=== PATIENT | male | born 1930 | race African-American/Black ===

== ENCOUNTER 2017-07-23 15:20 | Emergency (ER) | payer MEDICARE, MEDICAID ==
[2017-07-23] MEDS ORDERED: Dextrose 50% Abboject 50 ML SYRINGE ONE (15:46)
[2017-07-23 16:53] LABS: ALT (SGPT) 10 U/L (8-55); AST (SGOT) 21 U/L (5-34); Albumin 3.8 g/dL (3.4-4.8); Alkaline Phosphatase 71 U/L (40-150); Anion Gap 12 mmol/L (10-20); BUN (Urea Nitrogen) 18 mg/dL (8.4-25.7); Bilirubin, Total 0.3 mg/dL (0.2-1.2); Calc. Creatinine Clearance 0 mL/min (70-130); Carbon Dioxide 28 mmol/L (23-31); Chloride 102 mmol/L (98-107); Estimated GFR-MDRD 62; Globulin 3.6 g/dL (2.4-3.5); Glucose 142 mg/dL (83-110); Potassium 3.8 mmol/L (3.5-5.1); Protein, Total 7.4 g/dL (5.8-8.1); Sodium 138 mmol/L (136-145)
[2017-07-23 17:08] LABS: #Eosinphils 0.1 thou/uL (0.0-0.7); #Lymphocytes 0.9 thou/uL (1.20-3.40); #Monocytes 0.5 thou/uL (0.11-0.59); #Neutrophils 3.7 thou/uL (1.40-6.50); %Basophils 0.2 % (0.0-1.0); %Eosinophils 1.2 % (0.0-10.0); %Neutrophils 71.7 % (42.0-75.0); Hemoglobin 13.5 g/dL (14.0-18.0); Mean Corpuscular HGB CONC 32.4 g/dL (32.0-36.0); Mean Corpuscular Hemoglobin 29.6 pg (27.0-31.0); Mean Corpuscular Volume 91.5 fl (80.0-94.0); Mean Platelet Volume 7.5 fL (7.4-10.4); Platelet Count 249 thou/uL (130-400); RBC Distribution Width 12.7 % (11.5-14.5); Red Blood Cell (RBC) Count 4.54 mill/uL (4.70-6.10); White Blood Cell (WBC) Count 5.1 thou/uL (4.8-10.8)
[2017-07-23 17:33] LABS: CKMB 1.1 ng/mL (0-6.6); Troponin I Less than 0.010 ng/mL (< 0.028)
[2017-07-23 19:20] LABS: Bilirubin Negative (Negative); Blood, Urine Negative (Negative); Clarity CLEAR (Clear); Glucose, Urine (Dipstick) Negative (Negative); Leukocyte Negative (Negative); Nitrite Negative (Negative); Protein, Urine (Dipstick) Negative (Neg-Trace); Specific Gravity, Urine 1.009 (1.002-1.036); Urobilinogen 0.2 mg/dL (0.2-1.0)
--- NOTE | 2017-07-27 12:53 | EKG ---
Test Reason : Blood Pressure : / mmHG Vent. Rate : 077 BPM Atrial Rate : 077 BPM P-R Int : 204 ms QRS Dur : 102 ms QT Int : 398 ms P-R-T Axes : 053 -26 039 degrees QTc Int : 450 ms Normal sinus rhythm Nonspecific ST abnormality No ectopy Abnormal ECG Confirmed by JADA REICH, SKYLAR ([id number]), supervising film or videotape editor ZACHARY VALENZUELA ([id number]) on 07/27/2017 12:53:07 PM Referred By: Confirmed By:SKYLAR ELIAS MD
== END 2017-07-23 19:43 | disposition home or self-care (01) ==
LOC: ERS 15:20
DX: E11.649 Type 2 diabetes mellitus with hypoglycemia without coma (principal); E66.9 Obesity, unspecified; R60.0 Localized edema; Z79.84 Long term (current) use of oral hypoglycemic drugs; Z79.899 Other long term (current) drug therapy
CPT/HCPCS: 36415; 36416; 80053; 81003; 82553; 83880; 84484; 85025; 87045; 87046; 87081; 87324; 87449; 87899; 93005; 96374

== ENCOUNTER 2018-01-07 12:35 | Emergency (ER) | payer MEDICARE, OTHER ==
[2018-01-07 13:57] LABS: #Basophils 0.1 thou/uL (0.0-0.2); #Eosinphils 0.2 thou/uL (0.0-0.7); #Monocytes 1.5 thou/uL (0.11-0.59); #Neutrophils 10.2 thou/uL (1.40-6.50); %Basophils 0.4 % (0.0-1.0); %Eosinophils 1.4 % (0.0-10.0); %Monocytes 11.6 % (0.0-10.0); %Neutrophils 78.7 % (42.0-75.0); Hemoglobin 12.2 g/dL (14.0-18.0); Mean Corpuscular HGB CONC 31.3 g/dL (32.0-36.0); Mean Corpuscular Hemoglobin 29.3 pg (27.0-31.0); Mean Corpuscular Volume 93.5 fL (78.0-98.0); Mean Platelet Volume 8.3 fL (7.4-10.4); Platelet Count 368 thou/uL (130-400); RBC Distribution Width 12.4 % (11.5-14.5); Red Blood Cell (RBC) Count 4.17 mill/uL (4.70-6.10); White Blood Cell (WBC) Count 12.9 thou/uL (4.8-10.8)
[2018-01-07 14:11] LABS: ALT (SGPT) 11 U/L (8-55); AST (SGOT) 20 U/L (5-34); Albumin 3.3 g/dL (3.4-4.8); Alkaline Phosphatase 61 U/L (40-150); Anion Gap 12 mmol/L (10-20); BUN (Urea Nitrogen) 16 mg/dL (8.4-25.7); Bilirubin, Total 0.3 mg/dL (0.2-1.2); Calc. Creatinine Clearance 0 mL/min (70-130); Calcium 9.4 mg/dL (7.8-10.44); Carbon Dioxide 31 mmol/L (23-31); Chloride 103 mmol/L (98-107); Estimated GFR-MDRD Greater than 90; Globulin 3.9 g/dL (2.4-3.5); Glucose 122 mg/dL (83-110); Lipase 30 U/L (8-78); Magnesium 2.2 mg/dL (1.6-2.6); Protein, Total 7.2 g/dL (5.8-8.1); Sodium 142 mmol/L (136-145)
[2018-01-07 14:15] LABS: CKMB 1.8 ng/mL (0-6.6); Troponin I Less than 0.010 ng/mL (< 0.028)
--- NOTE | 2018-01-07 14:53 | RAD ---
CHEST ONE VIEW: History: 87-year-old male with history of vomiting and weakness. FINDINGS: Monitor leads overlie the chest. Heart size is within normal limits. The lungs are clear. No pneumoni a, edema, or pleural effusion. IMPRESSION: No acute intrathoracic disease. Atherosclerosis of the aorta. POS: [facility]
== END 2018-01-07 16:24 | disposition home or self-care (01) ==
LOC: ERS 12:35
DX: K29.70 Gastritis, unspecified, without bleeding (principal); L89.899 Pressure ulcer of other site, unspecified stage; I10 Essential (primary) hypertension; Z86.73 Personal history of transient ischemic attack (TIA), and cerebral infarction without residual deficits; E11.9 Type 2 diabetes mellitus without complications; Z79.899 Other long term (current) drug therapy
CPT/HCPCS: 71045; 80053; 82553; 83690; 83735; 84484; 85025; 93005

== ENCOUNTER 2018-01-31 16:00 | Emergency (ER) | payer MEDICARE, OTHER ==
--- NOTE | 2018-01-31 16:54 | RAD ---
PORTABLE CHEST 1 VIEW: DATE: 01/31/2018. TIME: 4:46 p.m. HISTORY: Cough. FINDINGS: Comparison is made with the exam of 01/07/2018. The heart size is normal. The aorta is tortuous. The lungs are expanded without focal areas of cons olidation, pneumothoraces, or pleural effusions. There are degenerative changes in the spine. IMPRESSION: No radiographic evidence of acute cardiopulmonary process. POS: [facility]
[2018-01-31 16:56] LABS: Bilirubin Negative (Negative); Blood, Urine Negative (Negative); Clarity CLEAR (Clear); Glucose, Urine (Dipstick) Negative (Negative); Leukocyte Negative (Negative); Nitrite Negative (Negative); Protein, Urine (Dipstick) 30 mg/dL (Neg-Trace); Specific Gravity, Urine 1.018 (1.002-1.036); pH, Urine 7.5 (5.0-9.0)
[2018-01-31 16:58] LABS: Bacteria/HPF None Seen HPF (None Seen); Hyaline Casts/LPF 0-3 HYALINE CAST LPF (0-3 Hyaline); Pathc Cast-AUWi Flag 0.14 (0-2.49); RBC/HPF 0-3 HPF (0-3); Squamous Epithelial 0-3 HPF (0-3); WBC/HPF 0-3 HPF (0-3)
[2018-01-31 17:00] LABS: #Eosinphils 0.2 thou/uL (0.0-0.7); #Lymphocytes 1.3 thou/uL (1.20-3.40); #Monocytes 0.8 thou/uL (0.11-0.59); #Neutrophils 5.6 thou/uL (1.40-6.50); %Basophils 0.2 % (0.0-1.0); %Lymphocytes 16.6 % (21.0-51.0); %Neutrophils 71.1 % (42.0-75.0); Hemoglobin 12.6 g/dL (14.0-18.0); Mean Corpuscular HGB CONC 31.6 g/dL (32.0-36.0); Mean Corpuscular Hemoglobin 29.1 pg (27.0-31.0); Mean Corpuscular Volume 92.1 fL (78.0-98.0); Mean Platelet Volume 7.3 fL (7.4-10.4); Platelet Count 336 thou/uL (130-400); RBC Distribution Width 12.9 % (11.5-14.5); Red Blood Cell (RBC) Count 4.33 mill/uL (4.70-6.10); White Blood Cell (WBC) Count 7.8 thou/uL (4.8-10.8)
[2018-01-31 17:22] LABS: ALT (SGPT) 12 U/L (8-55); AST (SGOT) 24 U/L (5-34); Albumin 3.2 g/dL (3.4-4.8); Alkaline Phosphatase 71 U/L (40-150); Anion Gap 8 mmol/L (10-20); BUN (Urea Nitrogen) 12 mg/dL (8.4-25.7); Bilirubin, Total 0.3 mg/dL (0.2-1.2); Calc. Creatinine Clearance 0 mL/min (70-130); Carbon Dioxide 31 mmol/L (23-31); Chloride 103 mmol/L (98-107); Estimated GFR-MDRD Greater than 90; Globulin 3.8 g/dL (2.4-3.5); Glucose 141 mg/dL (83-110); Potassium 3.8 mmol/L (3.5-5.1); Sodium 138 mmol/L (136-145)
[2018-01-31 17:26] LABS: CKMB 0.7 ng/mL (0-6.6); Troponin I Less than 0.010 ng/mL (< 0.028)
[2018-01-31 18:36] LABS: CK (CPK) 56 U/L (30-200); Lipase 41 U/L (8-78)
== END 2018-01-31 20:33 ==
LOC: ERS 16:00
DX: L89.159 Pressure ulcer of sacral region, unspecified stage (principal); I10 Essential (primary) hypertension; Z86.73 Personal history of transient ischemic attack (TIA), and cerebral infarction without residual deficits; E11.9 Type 2 diabetes mellitus without complications
CPT/HCPCS: 36415; 51701; 71045; 80053; 81003; 81015; 82553; 83690; 83880; 84443; 84484; 85025; 87086; 87804; 93005; 96360

== ENCOUNTER 2018-06-27 12:45 | Inpatient (IN) | payer MEDICARE, OTHER ==
--- NOTE | 2018-06-27 13:11 | RAD ---
Exam: Chest one view HISTORY:Weakness Comparison: 01/31/2018 FINDINGS: Extrinsic artifacts overlie the chest, limiting visualization. Lungs: Mild right basilar density Cardiac silhouette:Prominent mediastinal silhouette some of which is attributable to portable techniq ue and patient rotation Pulmonary vessels: Normal Pleural Spaces: Pleural-based density at the inferior right chest is present Pneumothorax: None Osseous abnormalities: None of acuity. IMPRESSION: Mild right basilar density could relate to small volume pleural fluid versus pleural thic kening. Prominent mediastinal silhouette as above. Fragment follow-up with well-positioned two-view chest radiograph to further evaluate.
--- NOTE | 2018-06-27 13:39 | CT ---
CT head noncontrast HISTORY: Weakness. Altered mental status. FINDINGS: There is no evidence of acute intracranial hemorrhage or infarct. Diffuse cortical atrophy. Mild chronic ischemic small vessel disease periventricular white matter. There is no mass effect or shift of midline structures. Visualized paranasal sinuses remain well aerated. IMPRESSION: Chronic-type findings. No acute intracranial abnormalities are demonstrated.
[2018-06-27 14:13] LABS: #Eosinphils 0.3 thou/uL (0.0-0.7); #Lymphocytes 2.1 thou/uL (1.20-3.40); #Monocytes 0.8 thou/uL (0.11-0.59); #Neutrophils 7.7 thou/uL (1.40-6.50); %Basophils 0.4 % (0.0-1.0); %Eosinophils 2.7 % (0.0-10.0); %Monocytes 7.6 % (0.0-10.0); %Neutrophils 70.2 % (42.0-75.0); Hemoglobin 9.3 g/dL (14.0-18.0); Mean Corpuscular HGB CONC 30.8 g/dL (32.0-36.0); Mean Corpuscular Hemoglobin 28.2 pg (27.0-31.0); Mean Corpuscular Volume 91.6 fL (78.0-98.0); Mean Platelet Volume 6.6 fL (7.4-10.4); Platelet Count 530 thou/uL (130-400); White Blood Cell (WBC) Count 10.9 thou/uL (4.8-10.8)
[2018-06-27 14:16] LABS: ALT (SGPT) Less than 7 U/L (8-55); AST (SGOT) 13 U/L (5-34); Albumin 2.6 g/dL (3.4-4.8); Alkaline Phosphatase 63 U/L (40-150); Anion Gap 12 mmol/L (10-20); BUN (Urea Nitrogen) 15 mg/dL (8.4-25.7); Bilirubin, Total 0.3 mg/dL (0.2-1.2); CK (CPK) 26 U/L (30-200); Calc. Creatinine Clearance 0 mL/min (70-130); Calcium 8.7 mg/dL (7.8-10.44); Carbon Dioxide 32 mmol/L (23-31); Chloride 100 mmol/L (98-107); Estimated GFR-MDRD Greater than 90; Globulin 4.2 g/dL (2.4-3.5); Glucose 118 mg/dL (83-110); Potassium 3.2 mmol/L (3.5-5.1); Protein, Total 6.8 g/dL (5.8-8.1); Sodium 141 mmol/L (136-145)
[2018-06-27] MEDS ORDERED: cefTRIAXone\\ROCEPHIN 2 GM VIAL ONE (14:20)
[2018-06-27 14:34] LABS: Bilirubin Negative (Negative); Blood, Urine Large (Negative); Clarity TURBID (Clear); Glucose, Urine (Dipstick) Negative (Negative); Leukocyte Large (Negative); Nitrite Negative (Negative); Protein, Urine (Dipstick) 100 mg/dL (Neg-Trace); Specific Gravity, Urine 1.011 (1.002-1.036); pH, Urine 6.5 (5.0-9.0)
[2018-06-27 14:45] LABS: Pathc Cast-AUWi Flag 435.38 (0-2.49); Yeast-AUWi Flag 1228.6 (0-25.0)
[2018-06-27 14:59] LABS: RBC/HPF GREATER THAN 50-TNTC HPF (0-3)
[2018-06-27 15:00] LABS: Bacteria/HPF 4+ HPF (None Seen); Hyaline Casts/LPF NONE SEEN LPF (0-3 Hyaline); Other Casts/LPF None Seen LPF (0-3 Hyaline); Yeast-All Forms None Seen HPF (None Seen)
[2018-06-27] MEDS ORDERED: Potassium Chloride 20 MEQ TAB ONE (15:13)
[2018-06-27] MEDS ORDERED: Ondansetron PF 4 MG/2 ML Vial IVP PRN (17:02)
[2018-06-27] MEDS ORDERED: cloNIDine 0.1 MG TAB PO PRN (17:02)
[2018-06-27] MEDS ORDERED: Senokot S 8.6-50 MG TAB PO PRN (17:02)
[2018-06-27] MEDS ORDERED: Calcium Carbonate 500 MG ChewTAB PO PRN (17:02)
[2018-06-27] MEDS ORDERED: hydrALAZINE 20 MG/ML VIAL SLOW IVP PRN (17:02)
[2018-06-27] MEDS ORDERED: Nitroglycerin 0.4 MG TAB (25 Tab Bottle) SL PRN (17:02)
[2018-06-27] MEDS ORDERED: Bisacodyl 10 MG SUPP PR PRN (17:02)
[2018-06-27] MEDS ORDERED: Benzonatate 100 MG CAP PO PRN (17:02)
[2018-06-27] MEDS ORDERED: Sodium Chloride 0.65% Nasal 44 ML BOT EA NARE PRN (17:02)
[2018-06-27] MEDS ORDERED: Bisacodyl 5 MG TAB PO PRN (17:02)
[2018-06-27] MEDS ORDERED: Dextrose 50% Abboject 50 ML SYRINGE SLOW IVP PRN (17:07)
[2018-06-27] MEDS ORDERED: Dextrose 5% in Water 1,000 ML IV PRN (17:07)
[2018-06-27] MEDS ORDERED: HumaLOG 300 UNITS/3 ML VIAL SC PRN ×2 (17:07)
[2018-06-27 19:43] VITALS: BMI 30.6
--- NOTE | 2018-06-27 20:02 | HP ---
PRIMARY CARE PHYSICIAN: León Rosas MD CHIEF COMPLAINT: Worsening generalized weakness. HISTORY OF PRESENTING ILLNESS: Mr. Orr is a pleasant 88-year-old male with past medical history of a stroke a few years ago, as well as high blood pressure, possible coronary artery disease and diabetes in the ER with above-mentioned complaint. History is mainly obtained by his family at bedside. The patient is a very poor historian. From most questions, he just defers it to everybody else in the room. Electronic medical records have been reviewed. According to his present at bedside, he has been lying in bed for the last couple of months. He has been progressively getting worse and worse. The patient himself states that he has been having chills. He denies any nausea, vomiting, diarrhea. He denies any dysuria, frequency, or urgency. He denies any chest pain, shortness of breath, orthopnea, or PND. reports that his appetite is very poor and he is barely eating. She tries to give him Ensure, but he does not want to drink that either. Family lives close by, but his elderly is the main care provider. The patient has also developed contracture off his left upper extremity for about 5 or 6 months and he reports that it is painful for him to extend the arm. He has not gotten out of the bed at all in the last 2 or 3 months and has been using adult diapers to urinate and defecate. Upon presentation to the emergency room, he was hemodynamically stable with a blood pressure 141/73, pulse of 89, respirations 18, temperature 98.2. His workup showed WBCs at 10.9, platelet count of 530, and hemoglobin of 9.3. He was somewhat hypokalemic with a potassium of 3.2. His cardiac enzymes were unremarkable. TSH and ammonia levels were normal. Blood sugar was 118. He was found to have blood and multiple bacteria in the urine and now was given Rocephin and vancomycin in the ER. He is hemodynamically stable and is now being admitted to Medicine Service for possible urinary tract infection. Urine culture and blood cultures have been obtained. CT scan of the brain is unremarkable. Chest x-ray unremarkable. CODE STATUS: Full code discussed with the patient and family in detail. REVIEW OF SYSTEMS: A full 14-point review of systems is done, it is negative except for those mentioned in the history and physical. All other systems are negative. PAST MEDICAL HISTORY: 1. Hypertension. 2. History of CVA. 3. Possible history of "heart attack.". 4. Diabetes mellitus, non insulin dependent. PAST SURGICAL HISTORY: The patient denies any recent or past surgeries. He is a very poor historian. PSYCHIATRIC HISTORY: Denies any anxiety or depression. SOCIAL HISTORY: He is and lives with his . No history of drug, tobacco, or alcohol abuse. FAMILY HISTORY: No significant family history of coronary artery disease or stroke. Some family members have had diabetes. ALLERGIES: NO KNOWN MEDICATION ALLERGIES. CURRENT MEDICATIONS: As listed in the ER records and will further need to be confirmed. 1. Atorvastatin 20 mg daily. 2. Glipizide 10 mg b.i.d. 3. Tamsulosin 0.4 mg daily. 4. Vitamin D2 daily. PHYSICAL EXAMINATION: VITAL SIGNS: Upon presentation, blood pressure 141/73, pulse of 89, respirations 18, temperature 98.2, and saturating 99% on room air. GENERAL: He is awake, alert, and oriented x3. He is being fed by his granddaughter at bedside and is eating voraciously. He does appear disheveled. HEENT: Mucous membrane is slightly dry. No oropharyngeal exudate or erythema. Head is normocephalic and atraumatic. Pupils are equal and reactive to light and accommodation. Extraocular movement intact. NECK: Supple without any lymphadenopathy, JVD, or bruit. CHEST: Clear to auscultation without any wheezing, rales, or rhonchi. HEART: Rate and rhythm are regular without any murmurs, rubs, or gallops. ABDOMEN: Soft, nontender, and nondistended. Positive bowel sounds. EXTREMITIES: Free of any cyanosis, clubbing, or edema. 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 NEUROLOGIC: Contracture of the left arm. I am able to move it involuntary, but the patient complains of pain. SKIN: Free of any rashes or bruises. Feels warm and dry to touch. PSYCHIATRIC: Normal affect. LABORATORY STUDIES: A 12-lead EKG by my review shows sinus rhythm at 90 beats per minute. He has some infrequent PVCs. Chest x-ray by my review shows atelectasis of the right base. LABORATORY DATA: As per HPI. WBC 10.9 with normal neutrophil count. Hemoglobin is 9.3, and the last one recorded in the system is 12.6 from January 2018. Platelet count 530. Serum chemistry; potassium 3.2, ammonia 29. Troponin 0.010. Creatine kinase 26, bicarb 32. Renal function within normal limit. Urinalysis showed lots of rbc's, wbc's and bacteria. CT scan of the brain by my review has no evidence to suggest acute hemorrhage or infarction. IMPRESSION AND PLAN: 1. Urinary tract infection with systemic inflammatory response syndrome. He will be started on broad spectrum IV antibiotics and IV fluids. He will be given Rocephin and vancomycin. We will follow the results of the urine and blood culture and taper the antibiotic based on the results. He is at very high risk of developing repeated urine infection because of his immobility and because of the fact that he is defecating in a diaper. We will also obtain a bladder scan to check for postvoid residual. The patient does not have any signs or symptoms to suggest hydronephrosis or nephrolithiasis. We will get a CT stone protocol to rule out nephrolithiasis as a cause as well. Currently, he is hemodynamically stable and will be admitted to medical floor. 2. Hypokalemia. We will start him on normal saline with potassium chloride. He has received 20 mEq of KCl in the emergency room as well. Check magnesium and phosphorus level. We suspect nutritional deficiencies because of poor oral intake. 3. Normocytic normochromic anemia. Suspect nutritional deficiencies. We will check iron indices as well as folic acid and B12 level. He denies any bleeding per rectum or melenic stools. 4. Dehydration as evident clinically. This is secondary to poor p.o. intake. We will start him on normal saline with potassium and monitor clinically. 5. Immobility and severe deconditioning. We will have OT/PT evaluate the patient. The patient will benefit from rehab stay. He is being taken care of by his elderly . He is a high risk for falls at home. 6. History of cerebrovascular accident. We will re-consult his home medications. I am not sure if the patient should be on aspirin at this point or not. I tried to review his past medical records, but he does not have any records in [facility] at this time. 7. Hypertension. Restart home medications once confirmed. 8. Diabetes mellitus. We will restart his home medication once confirmed and meanwhile put him on insulin sliding scale with frequent Accu-Cheks. 9. Add p.r.n. medication orders and supportive care. Deep venous thrombosis and gastrointestinal prophylaxis. DISPOSITION: Mr. Orr is currently being admitted to the hospital with urinary tract infection. He is hemodynamically stable. Estimated length of stay at this time is 2 to 3 midnights at the least. Further management will depend upon his clinical course. Code status, full code discussed with the patient and family. Job ID: [id number]
[2018-06-27] MEDS: Famotidine 20 MG TAB PO SCH (20:40)
[2018-06-27] MEDS: 1/2 NS w/KCL 20 mEq 1,000 ML IV SCH (20:40)
--- NOTE | 2018-06-27 22:23 | CT ---
CT of abdomen and pelvis: 06/27/2018 COMPARISON: None HISTORY: Urinary tract infection, decreased appetite and weight loss TECHNIQUE: Axial CT imaging obtained at 5 mm intervals through abdomen and pelvis with coronal reform atted imaging. No contrast media was administered FINDINGS: Lack of contrast media limits assessment of the viscera, bowel, vascular structures, and fo r lymphadenopathy. The visualized lung bases are unremarkable. No free intraperitoneal air is noted. Liver and spleen appear grossly unremarkable. Calcification near the gallbladder neck suggest choleli thiasis. Pancreas and adrenal glands appear grossly unremarkable. There is right-sided mild hydronephrosis and hydroureter extending to the level of the ureterovesicul ar junction. There is moderate hydronephrosis and hydroureter on the left also extending to the level of the ureterovesicular junction. The urinary bladder is markedly abnormal with circumferential irregular urinary bladder wall thickening. In addition there is significant perivesicular fat stranding. Limited assessment of the bowel without oral contrast media appears unremarkable. There is extensive atherosclerotic calcification of the abdominal aorta and its branches. Review of the osseous structures demonstrates diffuse osteopenia and multilevel lower lumbar spine fa cet hypertrophic change. No discrete worrisome lytic or blastic bone lesion. There is an age indeterminant, possibly acute, superior endplate fracture of the T12 vertebral body. IMPRESSION: Markedly abnormal appearance of the urinary bladder with irregular circumferential bladde r wall thickening. There is associated bilateral hydronephrosis and hydroureter as well as stranding of the adjacent perivesicular fat. This may be on the basis of an inflammatory/infectious p rocess involving the urinary bladder and or urinary bladder malignancy. Urology consultation is advised. Age-indeterminate superior endplate fracture of T12. Cholelithiasis.
[2018-06-28] MEDS: Acetaminophen 325 MG TAB PO PRN ×3 (02:01→19:33)
[2018-06-28] MEDS ORDERED: Vancomycin HCl 1 GM in Premix Bag 1 BAG IVPB SCH (03:00)
[2018-06-28] MEDS: 1/2 NS w/KCL 20 mEq 1,000 ML IV SCH ×2 (06:21→18:13)
[2018-06-28 06:42] LABS: #Eosinphils 0.2 thou/uL (0.0-0.7); #Lymphocytes 1.6 thou/uL (1.20-3.40); #Monocytes 0.9 thou/uL (0.11-0.59); %Basophils 0.5 % (0.0-1.0); %Eosinophils 2.1 % (0.0-10.0); %Monocytes 8.1 % (0.0-10.0); %Neutrophils 74.3 % (42.0-75.0); Hemoglobin 8.8 g/dL (14.0-18.0); Mean Corpuscular HGB CONC 31.4 g/dL (32.0-36.0); Mean Corpuscular Hemoglobin 28.6 pg (27.0-31.0); Mean Corpuscular Volume 91.1 fL (78.0-98.0); Mean Platelet Volume 6.6 fL (7.4-10.4); Platelet Count 477 thou/uL (130-400); RBC Distribution Width 12.9 % (11.5-14.5); Red Blood Cell (RBC) Count 3.09 mill/uL (4.70-6.10); White Blood Cell (WBC) Count 10.7 thou/uL (4.8-10.8)
[2018-06-28 06:57] LABS: Anion Gap 12 mmol/L (10-20); BUN (Urea Nitrogen) 14 mg/dL (8.4-25.7); Calc. Creatinine Clearance 79 mL/min (70-130); Calcium 8.4 mg/dL (7.8-10.44); Carbon Dioxide 30 mmol/L (23-31); Chloride 101 mmol/L (98-107); Estimated GFR-MDRD Greater than 90; Glucose 124 mg/dL (83-110); Iron 17 ug/dL (65-175); Iron Binding Capacity, Total 141 mcg/dL (261-462); Potassium 3.2 mmol/L (3.5-5.1); Sodium 140 mmol/L (136-145)
[2018-06-28 06:59] LABS: Iron 16 ug/dL (65-175); Iron Binding Capacity, Total 143 mcg/dL (261-462)
[2018-06-28 07:28] LABS: Folate (Folic Acid) 6.4 ng/mL (7.0-31.4)
[2018-06-28] MEDS: Famotidine 20 MG TAB PO SCH ×2 (07:58→19:33)
[2018-06-28] MEDS: Enoxaparin Sodium 40 MG/0.4 ML SYRINGE SC SCH (08:02)
--- NOTE | 2018-06-28 11:23 | PDOC.PN ---
- Subjective Encounter Start Date: 06/28/18 Encounter Start Time: 11:15 Subjective: f/u for suspected UTI, urinary retention and non-ambulatory status. -: Feels ok overall, some improvement in appetite. Needs assistance with all -: ADL's. interested in SNF options. - Objective Resuscitation Status - Order Detail: 06/27/18 18:14 Resuscitation Status Routine Resuscitation Status: FULL: Full Resuscitation Discussed with: discussed w pt MAR Reviewed: Yes Vital Signs & Weight: Vital Signs (12 hours) Temp Pulse Resp BP Pulse Ox 06/28/18 08:00 94 L 06/28/18 07:16 98.2 F 86 20 115/74 94 L 06/28/18 04:58 97.2 F L 79 16 102/62 93 L 06/28/18 01:00 97.8 F 88 16 136/66 95 Weight Weight 201 lb 9 oz I&O: 06/27/18 06/28/18 06/29/18 06:59 06:59 06:59 Intake Total 955 Balance 955 Result Diagrams: 06/28/18 05:53 06/28/18 05:53 Additional Labs: Accuchecks 06/28/18 06/27/18 04:55 21:01 POC Glucose 148 H 140 H Microbiology 06/27/18 14:57 Venous blood - Right Arm Blood Culture - Preliminary Specimen has been received and culture in progress. No Growth to date. 06/27/18 14:56 Venous blood - Left Hand Blood Culture - Preliminary Specimen has been received and culture in progress. No Growth to date. 06/27/18 14:03 Urine clean catch Urine Culture - Preliminary NO GROWTH AT 24 HOURS Laboratory Tests 06/27/18 06/27/18 06/27/18 13:48 13:48 13:48 WBC 10.9 H Hgb 9.3 L Plt Count 530 H Potassium 3.2 L Magnesium Iron TIBC % Saturation Vitamin B12 Folate TSH 3rd Generation 0.9999 06/27/18 06/28/18 06/28/18 13:48 05:53 05:53 WBC Hgb Plt Count Potassium Magnesium 1.8 Iron 17 L TIBC 141 L % Saturation 11 L Vitamin B12 Folate TSH 3rd Generation 06/28/18 05:53 WBC Hgb Plt Count Potassium Magnesium Iron TIBC % Saturation Vitamin B12 1334 H Folate 6.40 L TSH 3rd Generation Radiology Reviewed by me: Yes (CT abd/pel - urinary bladder wall thickening, bilat hydronephrosis/ureteter) Phys Exam - Physical Examination Constitutional: NAD smiling, alert, responsive HEENT: PERRLA, sclera anicteric, oral pharynx no lesions Neck: no nodes, no JVD, supple, full ROM Respiratory: no wheezing, no rales, no rhonchi, clear to auscultation bilateral S1, S2 Cardiovascular: RRR, no significant murmur, no rub, gallop Gastrointestinal: soft, non-tender, no distention, positive bowel sounds LUE contracture Musculoskeletal: no edema, pulses present moves RUE Neurological: normal sensation Skin: normal turgor, cap refill <2 seconds Dx/Plan (1) UTI (urinary tract infection) Status: Acute Comment: Suspected with initial negative Ucx, continue Rocephin , d/c Vancomycin (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 Comment: Klor-Con 40meq BID, serial K+ monitoring (5) Iron deficiency anemia Code(s): D50.9 - IRON DEFICIENCY ANEMIA, UNSPECIFIED Status: Chronic Comment : Start FeSO4 325mg BID (6) DM II (diabetes mellitus, type II), controlled Code(s): E11.9 - TYPE 2 DIABETES MELLITUS WITHOUT COMPLICATIONS Status: Chronic Comment: ISS, Accuchecks, resume Glipizide 10mg BID - Plan plan discussed w/ family, continue antibiotics, PT/OT, social services counselor, DVT proph w/SCDs Stable currently -: Continue Rocephin -: D/C Vancomycin -: PT/OT for functional assessment -: CM for SNF options * KCL replacement * AM lab: BMP, CBC
[2018-06-28] MEDS: cefTRIAXone\\ROCEPHIN 1 GM in Sodium Chloride 0.9% 100 ML IVPB SCH (14:11)
[2018-06-28] MEDS: Ferrous Sulfate 325 MG TAB PO SCH (14:11)
--- NOTE | 2018-06-29 03:30 | CON ---
DATE OF CONSULTATION: 06/27/2018 REASON FOR CONSULTATION: 1. Apparent urinary retention. 2. Gross hematuria. 3. Possible urinary tract infection. 4. Phimosis. 5. Prostate cancer. HISTORY OF PRESENT ILLNESS: Mr. Jose Enrique Orr is a very pleasant 88-year-old male formally a patient of my former partner, Dr. Kevon Thornton. Mr. Orr is admitted via the emergency department today for apparent incomplete bladder emptying, possible urinary tract infection and gross hematuria. Patient has a distant prostate cancer. Patient did undergo care previously by Dr. Kevon Thornton and by Dr. David Lowe. The patient is not having any major complaints regarding his bladder, but did undergo CT scanning today which demonstrates the presence of urinary bladder thickening, hydroureter, most prominent on the right side and evidence of urinary retention. Mr. Orr also suffers from diabetes mellitus and hypertension. ALLERGIES: NO KNOWN DRUG ALLERGIES. MEDICATION LIST: Includes; 1. Atorvastatin 20 mg daily. 2. Glipizide 10 mg twice daily. 3. Tamsulosin 0.4 mg daily. 4. Vitamin D2, take daily. PAST SURGICAL HISTORY: Patient does not report any previous surgery. He had radiation treatment for his prostate cancer. PHYSICAL EXAMINATION: VITAL SIGNS: Patient is afebrile with current temperature of 98.4, pulse 93, respirations 16, O2 saturations 93% on room air, and blood pressure is 149/67. GENERAL: This is a pleasant, awake, alert, male who has suffered unfortunately from a stroke, which affects mobility on his left side, his left hand. Shoulder movement is present, but he is unable to grasp or squeeze my hand. On the right side, there is some ability to grasp. Bilateral lower extremities appear to be extremely weak. The patient unable to complete a neurologic examination due to generalized weakness. HEAD, EYES, EARS, NOSE, AND THROAT: Extraocular movements are intact. Sclerae anicteric. Oropharynx is clear. NECK: Supple. LUNGS: Clear to auscultation bilaterally. CARDIAC: There appears to be an irregularly irregular rhythm on my exam today. ABDOMEN: Soft, obese, and nontender. Percussion reveals increased resonance in all four quadrants. There is a degree of distention present. A bladder scan was performed in an apparent postvoid state with this patient and he had over 280 mL of retained urine. GENITOURINARY: The patient has severe phimosis with inability to retract the foreskin. There is gross smegma present. Testes found present bilaterally in the scrotum are atrophic and small. Close examination of the patient's skin reveals no evidence of tattoos on the skin which would be normally found in a patient who underwent radiation therapy. BACK: There is a decubitus ulcer dressed on the sacral area. The spine appears normal. There is no costovertebral angle tenderness. RECTAL: Digital rectal examination is performed. There is a relative absence of rectal tone, perhaps consistent with the patient's previous radiation therapy. Digital rectal examination is performed. I find no evidence of residual prostate tissue, not able to find even 5 g of tissue to palpate. These findings would be consistent with the patient's past history of radiation therapy. There is no gross blood per rectum and no masses are noted. EXTREMITIES: As noted, there are pigmentation changes to the skin of the bilateral lower extremities and the patient has more or less unable to participate in neurologic examination due to weakness. LABORATORY STUDIES: Patient's admission white count yesterday was 10,900, now improved at 10,700 today. Hemoglobin today is 8.8 with hematocrit of 28.1. There is no significant left shift, although the ANC is elevated at 8000. Serum chemistries showed the patient's potassium at 3.2, blood urea nitrogen 14, creatinine 0.87 with an estimated GFR of greater than 90. Glucose was 124. Urinalysis obtained on 06/27/2018 showed the urine with a red color to it. Urine gravity of 1.011, urine protein 100, trace ketones, and large amount of blood was observed. On microscopic analysis, there was greater than 50 white cells per high-power field and greater than 50 red cells per high-power field. Urine bacteria were seen at a 4+ level. This apparently was a clean-catch through the patient's phimotic foreskin, so most of the results should be discounted due to that. A urine culture was obtained and there was no growth at 24 hours. Based on a "clean-catch" collections with a phimotic foreskin, I would also discount the culture results from this. ASSESSMENT: 1. Prostate cancer, status post external beam radiation therapy. There is no evidence of recurrence from a clinical standpoint in the patient's pelvis. Review of the CT scan does show bladder wall thickening which is more consistent with outlet obstruction. Patient currently is a urine retainer and clinical findings would agree with the CT scan results. 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 2. Phimosis. This patient if he goes to sleep for any investigative evaluations, should have a dorsal slit procedure performed. Alternatively, a circumcision. 3. Gross hematuria. 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 Cystoscopic evaluation could be performed to further evaluate that. 4. Prostate cancer. Most recent laboratories for the patient here at the [facility] did not show any recent PSA testing having been performed. Clinical findings suggest there is no residual prostate tissue. However, prostate infiltrative processes into the bladder could occur and account for the findings. Based on that, biopsied at the time of cystoscopy is probably indicated. PLAN: This patient probably could undergo cystoscopic evaluation and dorsal slit procedure during this hospitalization. Over 70 minutes of consultation time was spent in evaluation, assessment of this patient today. Job ID: [id number]
[2018-06-29] MEDS: 1/2 NS w/KCL 20 mEq 1,000 ML IV SCH ×3 (05:02→22:51)
[2018-06-29 06:48] LABS: Anion Gap 10 mmol/L (10-20); BUN (Urea Nitrogen) 11 mg/dL (8.4-25.7); Calc. Creatinine Clearance 80 mL/min (70-130); Carbon Dioxide 30 mmol/L (23-31); Chloride 104 mmol/L (98-107); Estimated GFR-MDRD Greater than 90; Glucose 97 mg/dL (83-110); Potassium 3.8 mmol/L (3.5-5.1); Sodium 140 mmol/L (136-145)
[2018-06-29 06:51] LABS: Hemoglobin 8.3 g/dL (14.0-18.0); Mean Corpuscular HGB CONC 31.3 g/dL (32.0-36.0); Mean Corpuscular Hemoglobin 28.6 pg (27.0-31.0); Mean Corpuscular Volume 91.4 fL (78.0-98.0); Platelet Count 440 thou/uL (130-400); RBC Distribution Width 13.1 % (11.5-14.5); White Blood Cell (WBC) Count 8.4 thou/uL (4.8-10.8)
[2018-06-29] MEDS: Famotidine 20 MG TAB PO SCH ×2 (08:09→20:38)
[2018-06-29] MEDS: Ferrous Sulfate 325 MG TAB PO SCH ×2 (08:09→16:13)
[2018-06-29] MEDS: Folic Acid 1 MG TAB PO SCH (08:10)
[2018-06-29] MEDS: Multivit, Therapeutic 1 TAB PO SCH (08:10)
[2018-06-29] MEDS: Acetaminophen 325 MG TAB PO PRN ×3 (08:12→20:38)
[2018-06-29] MEDS: Enoxaparin Sodium 40 MG/0.4 ML SYRINGE SC SCH (08:18)
[2018-06-29 08:42] LABS: Band 1 % (5-11); Eosinophils 4 % (0-10); Lymphocytes 18 % (21-51); MDiff Complete? YES; Monocytes 7 % (0-10); Neutrophil 70 % (42-75); Platelet Morphology Comment Appears Increased; Polychromasia SLIGHT = 2-3 cells (100X) (0-2/hpf)
--- NOTE | 2018-06-29 14:58 | PDOC.PN ---
- Subjective Encounter Start Date: 06/29/18 Encounter Start Time: 14:45 Subjective: f/u cystitis, UTI with gross hematuria and urinary retention. Continues -: on Rocephin and IVF's. No new issues. - Objective Resuscitation Status - Order Detail: 06/27/18 18:14 Resuscitation Status Routine Resuscitation Status: FULL: Full Resuscitation Discussed with: discussed w pt MAR Reviewed: Yes Vital Signs & Weight: Vital Signs (12 hours) Temp Pulse Pulse Resp BP BP Pulse Ox 06/29/18 11:47 98.5 F 91 18 126/78 96 06/29/18 11:04 88 126/78 06/29/18 11:00 98.3 F 91 18 126/78 96 06/29/18 07:57 98.0 F 88 18 154/87 H 94 L 06/29/18 07:05 98 F 88 18 154/87 H 94 L 06/29/18 05:03 98.8 F 93 18 152/68 H 95 Pulse Ox 06/29/18 11:47 06/29/18 11:04 96 06/29/18 11:00 06/29/18 07:57 06/29/18 07:05 06/29/18 05:03 Weight Admit Weight 201 lb 9 oz Weight 201 lb 9 oz I&O: 06/28/18 06/29/18 06/30/18 06:59 06:59 06:59 Intake Total 955 3800 Balance 955 3800 Result Diagrams: 06/29/18 05:27 06/29/18 05:27 Additional Labs: Accuchecks 06/29/18 06/29/18 06/28/18 11:02 05:01 19:20 POC Glucose 156 H 116 H 139 H 06/28/18 16:40 POC Glucose 136 H Microbiology 06/27/18 14:03 Urine clean catch Urine Culture - Final 06/27/18 14:57 Venous blood - Right Arm Blood Culture - Preliminary Specimen has been received and culture in progress. No Growth to date. 06/27/18 14:57 Venous blood - Right Arm Blood Culture - Preliminary NO GROWTH AT 48 HOURS 06/27/18 14:56 Venous blood - Left Hand Blood Culture - Preliminary Specimen has been received and culture in progress. No Growth to date. 06/27/18 14:56 Venous blood - Left Hand Blood Culture - Preliminary NO GROWTH AT 48 HOURS 06/27/18 14:03 Urine clean catch Urine Culture - Preliminary NO GROWTH AT 24 HOURS Laboratory Tests 06/27/18 06/27/18 06/27/18 13:48 13:48 13:48 WBC 10.9 H Hgb 9.3 L Plt Count 530 H Potassium 3.2 L Magnesium Iron TIBC % Saturation Vitamin B12 Folate TSH 3rd Generation 0.9999 06/27/18 06/28/18 06/28/18 13:48 05:53 05:53 WBC Hgb Plt Count Potassium Magnesium 1.8 Iron 17 L TIBC 141 L % Saturation 11 L Vitamin B12 Folate TSH 3rd Generation 06/28/18 05:53 WBC Hgb Plt Count Potassium Magnesium Iron TIBC % Saturation Vitamin B12 1334 H Folate 6.40 L TSH 3rd Generation Phys Exam - Physical Examination Constitutional: NAD HEENT: PERRLA, sclera anicteric, oral pharynx no lesions Neck: no nodes, no JVD, supple, full ROM Respiratory: no wheezing, no rales, no rhonchi, clear to auscultation bilateral S1, S2 Cardiovascular: RRR, no significant murmur, no rub, gallop Gastrointestinal: soft, non-tender, no distention, positive bowel sounds Musculoskeletal: no edema, pulses present Neurological: normal sensation, moves all 4 limbs Skin: normal turgor, cap refill <2 seconds Dx/Plan (1) UTI (urinary tract infection) Status: Acute Comment: Suspected with initial negative Ucx, continue Rocephin , d/c Vancomycin (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 Comment: Urinary retention likely multifactorial, consult Urology for evaluation, incontinence noted (3) Urinary retention Code(s): R33.9 - RETENTION OF URINE, UNSPECIFIED Status: Chronic Comment: Likely will need cystoscopy, Clemens for bladder decompression (4) Severe muscle deconditioning Code(s): R29.898 - OTH SYMPTOMS AND SIGNS INVOLVING THE MUSCULOSKELETAL SYSTEM Status: Chronic Comment: PT/OT for functional assessement, fall risk precautions, SNF options (5) Hypokalemia Code(s): E87.6 - HYPOKALEMIA Status: Chronic Comment: Klor-Con 40meq BID, serial K+ monitoring, improved (6) Iron deficiency anemia Code(s): D50.9 - IRON DEFICIENCY ANEMIA, UNSPECIFIED Status: Chronic Comment : Start FeSO4 325mg BID (7) DM II (diabetes mellitus, type II), controlled Code(s): E11.9 - TYPE 2 DIABETES MELLITUS WITHOUT COMPLICATIONS Status: Chronic Comment: ISS, Accuchecks, resume Glipizide 10mg BID - Plan plan discussed w/ family, continue antibiotics, PT/OT, director social service, DVT proph w/SCDs Stable overall -: Continue Rocephin 1gm IV daily -: Continue IVF's -: D/C Lovenox -: AM lab: H/H * SNF options
[2018-06-29] MEDS: cefTRIAXone\\ROCEPHIN 1 GM in Sodium Chloride 0.9% 100 ML IVPB SCH (16:13)
--- NOTE | 2018-06-30 04:04 | CON ---
DATE OF CONSULTATION: DATE OF INITIAL CONSULTATION: 06/28/2018. DATE OF PROGRESS NOTE: 06/29/2018. INITIAL REASON FOR CONSULTATION: 1. Apparent urinary retention. 2. Gross hematuria. 3. Possible urinary tract infection. 4. Phimosis. 5. Prostate cancer history, status post radiation. BRIEF HISTORY: Mr. Jose Enrique Orr is a very pleasant 88-year-old male who was formally a patient of my previous partner, Dr. Kevon Thornton. The patient had a diagnosis of prostate cancer and underwent radiation therapy for his prostate cancer as directed by Dr. David Lowe. This was many years ago. The patient had a suggestion of possible incomplete bladder emptying on bladder scans as well as bladder wall thickening documented on CT imaging. The patient has apparent hydroureter as well. Based on the constellation of findings, I have made recommendations to Mr. Orr today. 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 This may also lead to generalize bladder dysfunction from the radiation with decreased pliability of the bladder wall, in effect a lead bladder. The patient and I discussed the various possibilities including outlet obstruction due to stricture or actual scarring of the prostate itself. In addition, the patient has some other potential issues with his phimosis, which is severe at this point, we could no longer retract his foreskin to examine below that and this often times leads to urethral stricturing via balanitis xerotica obliterans (BXO). The patient and I discussed the options and I recommended proceeding with a dorsal slit procedure and cystoscopy to establish the cause of his issues. This could be performed tomorrow in the p.m. hours. The patient and I discussed various additional options. PHYSICAL EXAMINATION: VITAL SIGNS: Temperature is 98.5, pulse 91, respirations 18, O2 saturation on room air is 96%, blood pressure is 126/78. HEAD, EYES, EARS, NOSE, AND THROAT: Extraocular movements are intact. Sclerae are anicteric. Oropharynx is clear. NECK: Supple. 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 LUNGS: Clear to auscultation bilaterally. CARDIAC: Appears to be in regular rate and rhythm. ABDOMEN: Soft and nontender. Percussion reveals a degree of resonance in all four quadrants. GENITOURINARY: The patient is in incontinence garments and does have slight pink staining on the incontinence garments. Digital rectal examination was not repeated today as we did that yesterday. LABORATORY FINDINGS: The patient's white count is 8400 today, hemoglobin is 8.3 with hematocrit of 26.5, most likely simply dilutional anemia. The patient's electrolytes show complete normality with estimated glomerular filtration rate of greater than 90, creatinine of 0.86. The patient does have elevated blood glucose currently at 125. ASSESSMENT: 1. 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 2. Hydroureter. This is probably secondary to high pressures in the patient's bladder, secondary to radiation cystitis and associated changes. Other possibilities would be urethral stricture disease, possibly even induced by the patient's current phimosis issues. 3. Phimosis. This is noted can cause balanitis xerotica obliterans and resulted in obliteration of the patient's urethral meatus. Based on the findings, I am recommending the patient proceed with a dorsal slit procedure. Job ID: [id number]
[2018-06-30 05:33] LABS: Hemoglobin 8.6 g/dL (14.0-18.0); Platelet Count 452 thou/uL (130-400)
[2018-06-30] MEDS: Multivit, Therapeutic 1 TAB PO SCH (08:46)
[2018-06-30] MEDS: Acetaminophen 325 MG TAB PO PRN ×3 (08:46→21:13)
[2018-06-30] MEDS: Ferrous Sulfate 325 MG TAB PO SCH ×2 (08:47→16:01)
[2018-06-30] MEDS: Folic Acid 1 MG TAB PO SCH (08:47)
[2018-06-30] MEDS: Famotidine 20 MG TAB PO SCH ×2 (08:47→21:13)
[2018-06-30] MEDS: 1/2 NS w/KCL 20 mEq 1,000 ML IV SCH ×2 (10:29→23:15)
--- NOTE | 2018-06-30 11:25 | PDOC.PN ---
- Subjective Encounter Start Date: 06/30/18 Encounter Start Time: 11:20 Subjective: f/u for UTI on Rocephin with urinary retention and radiation induced -: cystitis with hematuria. Feels better overall, no new complaints. - Objective Resuscitation Status - Order Detail: 06/27/18 18:14 Resuscitation Status Routine Resuscitation Status: FULL: Full Resuscitation Discussed with: discussed w pt MAR Reviewed: Yes Vital Signs & Weight: Vital Signs (12 hours) Temp Pulse Resp BP Pulse Ox 06/30/18 08:00 98.3 F 102 H 20 164/71 H 94 L Weight Admit Weight 201 lb 9 oz Weight 201 lb 9 oz I&O: 06/29/18 06/30/18 07/01/18 06:59 06:59 06:59 Intake Total 3800 Balance 3800 Result Diagrams: 06/30/18 05:11 06/29/18 05:27 Additional Labs: Accuchecks 06/30/18 06/29/18 06/29/18 05:12 20:11 16:57 POC Glucose 103 125 H 126 H Microbiology 06/27/18 14:03 Urine clean catch Urine Culture - Final 06/27/18 14:57 Venous blood - Right Arm Blood Culture - Preliminary Specimen has been received and culture in progress. No Growth to date. 06/27/18 14:57 Venous blood - Right Arm Blood Culture - Preliminary NO GROWTH AT 48 HOURS 06/27/18 14:56 Venous blood - Left Hand Blood Culture - Preliminary Specimen has been received and culture in progress. No Growth to date. 06/27/18 14:56 Venous blood - Left Hand Blood Culture - Preliminary NO GROWTH AT 48 HOURS 06/27/18 14:03 Urine clean catch Urine Culture - Preliminary NO GROWTH AT 24 HOURS Laboratory Tests 06/27/18 06/27/18 06/27/18 13:48 13:48 13:48 WBC 10.9 H Hgb 9.3 L Plt Count 530 H Potassium 3.2 L Magnesium Iron TIBC % Saturation Vitamin B12 Folate TSH 3rd Generation 0.9999 06/27/18 06/28/18 06/28/18 13:48 05:53 05:53 WBC Hgb Plt Count Potassium Magnesium 1.8 Iron 17 L TIBC 141 L % Saturation 11 L Vitamin B12 Folate TSH 3rd Generation 06/28/18 05:53 WBC Hgb Plt Count Potassium Magnesium Iron TIBC % Saturation Vitamin B12 1334 H Folate 6.40 L TSH 3rd Generation Phys Exam - Physical Examination Constitutional: NAD HEENT: PERRLA, sclera anicteric, oral pharynx no lesions Neck: no nodes, no JVD, supple, full ROM Respiratory: no wheezing, no rales, no rhonchi, clear to auscultation bilateral S1, S2 Cardiovascular: RRR, no significant murmur, no rub, gallop Gastrointestinal: soft, non-tender, no distention, positive bowel sounds Musculoskeletal: no edema, pulses present Neurological: normal sensation, moves all 4 limbs Skin: normal turgor, cap refill <2 seconds Dx/Plan (1) UTI (urinary tract infection) Status: Acute Comment: Suspected with initial negative Ucx, continue Rocephin , d/c Vancomycin (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 Comment: Urinary retention likely multifactorial, consult Urology for evaluation, incontinence noted, considering dorsal slit procedure (3) Urinary retention Code(s): R33.9 - RETENTION OF URINE, UNSPECIFIED Status: Chronic Comment: Likely will need cystoscopy, Clemens for bladder decompression (4) Severe muscle deconditioning Code(s): R29.898 - OTH SYMPTOMS AND SIGNS INVOLVING THE MUSCULOSKELETAL SYSTEM Status: Chronic Comment: PT/OT for functional assessement, fall risk precautions, SNF options (5) Hypokalemia Code(s): E87.6 - HYPOKALEMIA Status: Chronic Comment: Klor-Con 40meq BID, serial K+ monitoring, improved (6) Iron deficiency anemia Code(s): D50.9 - IRON DEFICIENCY ANEMIA, UNSPECIFIED Status: Chronic Comment : Start FeSO4 325mg BID (7) DM II (diabetes mellitus, type II), controlled Code(s): E11.9 - TYPE 2 DIABETES MELLITUS WITHOUT COMPLICATIONS Status: Chronic Comment: ISS, Accuchecks, resume Glipizide 10mg BID - Plan plan discussed w/ family, continue antibiotics, PT/OT, home health care social worker, DVT proph w/SCDs Stable currently -: Continue Rocephin 1gm IV daily another 24h then convert to po abx -: Appreciate Urology assistance -: D/C Lovenox -: CM for SNF options * Change KCL 40meq daily * Saline lock IVF
[2018-06-30] MEDS: cefTRIAXone\\ROCEPHIN 1 GM in Sodium Chloride 0.9% 100 ML IVPB SCH (13:15)
[2018-07-01] MEDS: Ferrous Sulfate 325 MG TAB PO SCH (08:32)
[2018-07-01] MEDS: Folic Acid 1 MG TAB PO SCH (08:32)
[2018-07-01] MEDS: Multivit, Therapeutic 1 TAB PO SCH (08:33)
[2018-07-01] MEDS: Famotidine 20 MG TAB PO SCH (08:33)
[2018-07-01] MEDS: 1/2 NS w/KCL 20 mEq 1,000 ML IV SCH (15:53)
[2018-07-01] MEDS: cefTRIAXone\\ROCEPHIN 1 GM in Sodium Chloride 0.9% 100 ML IVPB SCH (15:53)
[2018-07-01 16:19] VITALS: BP 144/78; TEMP 98.3
--- NOTE | 2018-07-02 01:35 | DIS ---
DATE OF ADMISSION: 06/27/2018 DATE OF DISCHARGE: 07/01/2018 DISCHARGE DIAGNOSES: 1. Urinary tract infection, organism not identified. 2. Ureterohydronephrosis, secondary to urinary retention. 3. Urinary retention status post Clemens catheter for bladder decompression. 4. Severe muscle deconditioning. 5. Hypokalemia, improved. 6. Iron-deficiency anemia. 7. Diabetes mellitus type 2, stable. 8. Phimosis. CONSULTATIONS: Dr. Rao Hernandez with Urology Service. PERTINENT LAB AND X-RAY FINDINGS: Potassium ranged between 3.2 to 3.8, calcium 8.7, magnesium 1.8. Serum iron level 16. Ammonia level 29. TSH 0.99. Vitamin B12 level 1334. Folate level 6.4. CBC showed a hemoglobin ranged between 8.3 to 9.3. Blood cultures x2 dated 06/27/2018, showed no growth at 48 hours. Urine culture dated 06/27/2018, showed 10,000 to 25,000 colonies of mixed skin linette. CT of the brain without contrast dated 06/27/2018, showed chronic ischemic white matter changes without acute process. Portable chest x-ray dated 06/27/2018, showed chronic changes without acute process. CT of the abdomen and pelvis dated 06/27/2018, showed urinary bladder wall thickening with bilateral hydroureteronephrosis. HOSPITAL COURSE: The patient was initially admitted after presenting with generalized weakness and nonambulatory status. The patient underwent general evaluation including metabolic screening with concern for urinary tract infection due to urinary retention. CT imaging of the abdomen and pelvis was performed showing evidence of bilateral hydroureteronephrosis with bladder decompression with Clemens catheter. The patient was placed on broad-spectrum antibiotic therapy with Rocephin and vancomycin. Urine culture was unrevealing as to exact organism with normal skin linette noted on culture results. The patient was also noted with hematuria and irregular bladder wall thickening on CT imaging. The patient was evaluated by the Nephrology Service due to the abnormal findings on CT of the abdomen and pelvis. However, the patient did not want to proceed with any surgical intervention or studies to include cystoscopy. The patient was also noted with phimosis on clinical exam and offered surgical intervention, however, declined to proceed with any further management. The patient was medically treated with antibiotic therapy, low volume IV fluids and remained clinically stable. Due to the patient's severe deconditioning and nonambulatory status, the patient was recommended for ongoing skilled care. The patient has been approved to transition to [facility] to continue ongoing supervised medical care, as well as receive physical and occupational therapy. I have examined the patient at the time of discharge and discussed followup instructions. The patient verbalized understanding and in agreement and ready for discharge on 07/01/2018. DISCHARGE MEDICATIONS: 1. Ferrous sulfate 325 mg p.o. b.i.d. 2. Folic acid 1 mg p.o. daily. 3. Multivitamin 1 tablet p.o. daily. 4. Potassium chloride 40 mEq p.o. daily. 5. Lipitor 20 mg p.o. at bedtime. 6. Vitamin D2 of 50,000 units p.o. q.7 days. 7. Glipizide 10 mg p.o. b.i.d. 8. Tamsulosin 0.4 mg 2 capsules p.o. at bedtime. FOLLOWUP: The patient may follow up with Dr. León Rosas, after discharge from [facility]. CONDITION ON DISCHARGE: Fair. ACTIVITY: Ad-leopoldo. Maximal assistance with transfers and sitting at the edge of bed. DIET: ADA. Supplements, Glucerna t.i.d. SPECIAL INSTRUCTIONS: Continue physical and occupational therapy. CODE STATUS: Full. DISPOSITION: Discharged to [place], [place], 07/01/2018. TIME SPENT: Total time preparing and coordinating discharge, 32 minutes. Job ID: [id number]
== END 2018-07-01 16:12 | DRG 690 ==
LOC: ERS 12:45 → ERHOLD 15:25 → T4-A 19:21
PROVIDERS: ADMIT Internal Medicine; ATTEND Internal Medicine
DX: N13.6 Pyonephrosis (principal); R65.10 Systemic inflammatory response syndrome (SIRS) of non-infectious origin without acute organ dysfunction; I25.10 Atherosclerotic heart disease of native coronary artery without angina pectoris; E11.9 Type 2 diabetes mellitus without complications; E87.6 Hypokalemia; I10 Essential (primary) hypertension; E86.0 Dehydration; R33.9 Retention of urine, unspecified; D50.9 Iron deficiency anemia, unspecified; R31.9 Hematuria, unspecified; N47.1 Phimosis; C61 Malignant neoplasm of prostate; Z86.73 Personal history of transient ischemic attack (TIA), and cerebral infarction without residual deficits; Z79.84 Long term (current) use of oral hypoglycemic drugs; Z79.899 Other long term (current) drug therapy
CPT/HCPCS: 36415; 36416; 51701; 70450; 71045; 74176; 80048; 80053; 81003; 81015; 82140; 82550; 82607; 82746; 83540; 83550; 83735; 84443; 84484; 85007; 85014; 85018; 85025; 85027; 85049; 86850; 86900; 86901; 87040; 87086; 93005; 96365; 96366; 96367; J0696; J1650; J3370; J3480; J3490

== ENCOUNTER 2018-08-03 06:53 | Emergency (ER) | payer MEDICARE, OTHER ==
[2018-08-03] MEDS ORDERED: Dextrose 50% Abboject 50 ML SYRINGE ONE (07:16)
[2018-08-03 09:03] LABS: #Eosinphils 0.2 thou/uL (0.0-0.7); #Lymphocytes 1.4 thou/uL (1.20-3.40); #Monocytes 0.5 thou/uL (0.11-0.59); #Neutrophils 9.5 thou/uL (1.40-6.50); %Basophils 0.1 % (0.0-1.0); %Eosinophils 1.4 % (0.0-10.0); %Lymphocytes 12.3 % (21.0-51.0); %Monocytes 4.2 % (0.0-10.0); Hemoglobin 9.5 g/dL (14.0-18.0); Mean Corpuscular HGB CONC 30.7 g/dL (32.0-36.0); Mean Corpuscular Hemoglobin 29.1 pg (27.0-31.0); Mean Corpuscular Volume 94.8 fL (78.0-98.0); Mean Platelet Volume 7.1 fL (7.4-10.4); Platelet Count 399 thou/uL (130-400); RBC Distribution Width 15.2 % (11.5-14.5); Red Blood Cell (RBC) Count 3.26 mill/uL (4.70-6.10); White Blood Cell (WBC) Count 11.6 thou/uL (4.8-10.8)
[2018-08-03 09:24] LABS: ALT (SGPT) 11 U/L (8-55); AST (SGOT) 18 U/L (5-34); Alkaline Phosphatase 64 U/L (40-150); Anion Gap 13 mmol/L (10-20); BUN (Urea Nitrogen) 28 mg/dL (8.4-25.7); Bilirubin, Total 0.2 mg/dL (0.2-1.2); Calc. Creatinine Clearance 0 mL/min (70-130); Calcium 8.9 mg/dL (7.8-10.44); Carbon Dioxide 26 mmol/L (23-31); Chloride 102 mmol/L (98-107); Estimated GFR-MDRD 66; Globulin 4.1 g/dL (2.4-3.5); Glucose 112 mg/dL (83-110); Potassium 3.7 mmol/L (3.5-5.1); Protein, Total 7.1 g/dL (5.8-8.1); Sodium 137 mmol/L (136-145)
== END 2018-08-03 11:23 | disposition home or self-care (01) ==
LOC: ERS 06:53
DX: E11.649 Type 2 diabetes mellitus with hypoglycemia without coma (principal); Z86.73 Personal history of transient ischemic attack (TIA), and cerebral infarction without residual deficits; I10 Essential (primary) hypertension; Z79.84 Long term (current) use of oral hypoglycemic drugs; Z79.899 Other long term (current) drug therapy
CPT/HCPCS: 36415; 36416; 80053; 85025; 93005; 96374

== ENCOUNTER 2018-08-19 12:08 | Inpatient (IN) | payer MEDICARE, OTHER ==
[2018-08-19 12:39] LABS: Hemoglobin 8.2 g/dL (14.0-18.0); Mean Corpuscular HGB CONC 31.6 g/dL (32.0-36.0); Mean Corpuscular Volume 91.6 fL (78.0-98.0); Mean Platelet Volume 6.8 fL (7.4-10.4); Platelet Count 465 thou/uL (130-400); RBC Distribution Width 13.8 % (11.5-14.5); Red Blood Cell (RBC) Count 2.82 mill/uL (4.70-6.10); White Blood Cell (WBC) Count 13.6 thou/uL (4.8-10.8)
[2018-08-19 12:58] LABS: ALT (SGPT) Less than 7 U/L (8-55); AST (SGOT) 14 U/L (5-34); Albumin 2.4 g/dL (3.4-4.8); Alkaline Phosphatase 56 U/L (40-150); Anion Gap 12 mmol/L (10-20); BUN (Urea Nitrogen) 18 mg/dL (8.4-25.7); Bilirubin, Total 0.2 mg/dL (0.2-1.2); Calc. Creatinine Clearance 0 mL/min (70-130); Calcium 8.3 mg/dL (7.8-10.44); Carbon Dioxide 27 mmol/L (23-31); Chloride 103 mmol/L (98-107); Estimated GFR-MDRD Greater than 90; Globulin 3.7 g/dL (2.4-3.5); Glucose 165 mg/dL (83-110); Potassium 3.7 mmol/L (3.5-5.1); Protein, Total 6.1 g/dL (5.8-8.1); Sodium 138 mmol/L (136-145)
[2018-08-19 13:01] LABS: Band 5 % (5-11); Lymphocytes 1 % (21-51); MDiff Complete? YES; Monocytes 1 % (0-10); Neutrophil 92 % (42-75); Platelet Morphology Comment Appears Increased; Polychromasia SLIGHT = 2-3 cells (100X) (0-2/hpf)
--- NOTE | 2018-08-19 13:07 | RAD ---
XR Chest 1 View Portable HISTORY: Sepsis. Infected sacral ulcer. Tachycardia, fever COMPARISON: 01/31/2018 FINDINGS: The heart size is normal. The lungs are well expanded without focal areas of consolidation, pneumothorax or pleural effusions. IMPRESSION: No radiographic evidence of acute cardiopulmonary process.
[2018-08-19] MEDS ORDERED: Acetaminophen 500 MG TAB ONE (13:56)
[2018-08-19 14:15] LABS: Bilirubin Negative (Negative); Blood, Urine Small (Negative); Clarity TURBID (Clear); Glucose, Urine (Dipstick) Negative (Negative); Leukocyte Large (Negative); Nitrite Negative (Negative); Protein, Urine (Dipstick) 30 mg/dL (Neg-Trace); Specific Gravity, Urine 1.014 (1.002-1.036); Urobilinogen 0.2 mg/dL (0.2-1.0); pH, Urine 7.5 (5.0-9.0)
[2018-08-19 14:19] LABS: Yeast-AUWi Flag 269.8 (0-25.0)
[2018-08-19 14:20] LABS: Pathc Cast-AUWi Flag 8.75 (0-2.49)
[2018-08-19 14:32] LABS: Bacteria/HPF 3+ HPF (None Seen)
[2018-08-19 14:33] LABS: Hyaline Casts/LPF 0-3 HYALINE CAST LPF (0-3 Hyaline); Other Casts/LPF None Seen LPF (0-3 Hyaline); Yeast-All Forms None Seen HPF (None Seen)
[2018-08-19] MEDS ORDERED: cefTRIAXone\\ROCEPHIN 2 GM VIAL ONE (15:14)
[2018-08-19] MEDS ORDERED: Vancomycin HCl 1.5 GM in Sodium Chloride 0.9% 250 ML 300 ML IVPB SCH (15:30)
[2018-08-19] MEDS ORDERED: Bisacodyl 10 MG SUPP PR PRN (16:07)
[2018-08-19] MEDS ORDERED: Guaifenesin DM 100-10/5 ML UDCUP PO PRN (16:07)
[2018-08-19] MEDS ORDERED: HYDROcodone/Acetaminophen 5/325 mg Tablet PO PRN (16:07)
[2018-08-19] MEDS ORDERED: Dextrose 5% in Water 1,000 ML IV PRN (16:22)
[2018-08-19] MEDS ORDERED: Dextrose 50% Abboject 50 ML SYRINGE SLOW IVP PRN (16:22)
[2018-08-19] MEDS ORDERED: HumaLOG 300 UNITS/3 ML VIAL SC PRN ×2 (16:22)
[2018-08-19 17:40] VITALS: BMI 34.9
[2018-08-19] MEDS: Piperacillin/Tazobactam 4.5 GM in Sodium Chloride 0.9% 100 ML IVPB SCH (17:44)
[2018-08-19] MEDS: Sodium Chloride 0.9% 1,000 ML IV SCH (17:44)
--- NOTE | 2018-08-19 19:29 | HP ---
REASON FOR ADMISSION: Sepsis, sacral decubitus ulcer which is infected. HISTORY OF PRESENTING ILLNESS: Please note, the patient is a very poor historian. All he says is, he got a sore behind and it has been there from last 6-8 months. He apparently lives with his and is wheelchair bound. The patient has had stroke with left hemiplegia in the past and he also has dysarthria which is making him understand difficult as well. He is also not fully oriented. Had a temperature of 100 degrees and was a sepsis alert in the ER. PAST MEDICAL AND SURGICAL HISTORY: History of CVA with left hemiplegia, dysarthria, hypertension, coronary artery disease, diabetes mellitus type. Please note the patient is a very poor historian. PERSONAL HISTORY: Does not abuse alcohol or drugs. No history of smoking. FAMILY HISTORY: Father apparently at the age of 65 years. He does not know the cause. Mom is diseased as well and he is not aware of the exact age she and the causes for the same. Per prior records, when he was discharged from June of this year. The patient is on 1. Atorvastatin 20 mg p.o. at bedtime. 2. Vitamin D2 98181 units once a week. 3. Glipizide 10 mg twice daily. 4. Flomax 0.8 mg p.o. at bedtime. 5. Ferrous sulfate 325 mg p.o. twice daily. 6. Folic acid 1 mg daily. 7. Multivitamin one tablet once daily. 8. Potassium chloride 40 mEq p.o. daily. ALLERGIES: NO KNOWN DRUG ALLERGIES. CODE STATUS: Full. Power of certified solid waste facility operator will be his . She is apparently in the ER with her being sick. We will try to contact her if she is discharged from ER for further help with code status and history as well. REVIEW OF SYSTEM: Cannot be accurately obtained as patient is not oriented. PHYSICAL EXAMINATION: GENERAL: The patient is an 88-year-old male who is currently not in any acute distress. Please note, the patient is not oriented fully. VITAL SIGNS: Blood pressure 90/60, pulse 104 per minute, respiratory rate 24 per minute, temperature 100.7 degrees Fahrenheit, saturating 96% on room air. NECK: Supple. No elevated JVD. HEENT: Eyes; extraocular muscles intact. Pupils reacting to light. Oral cavity, mucous membranes are dry. No exudates or congestion. Cardiovascular System: S1, S2 heard. Tachycardic. RESPIRATORY SYSTEM: Air entry 1+ bilateral. Scattered rhonchi plus no rales or wheezes. ABDOMEN: Soft. The patient has posterior wall edema. Bowel sounds are heard. No tenderness, rigidity, or guarding. The patient has a deep sacral decubitus with purulent material at the base of the ulcer. EXTREMITIES: He has bilateral lower extremity edema, worse in the thighs. Peripheral pulses are 1+ bilateral. No gangrene seen in the toes. CENTRAL NERVOUS SYSTEM: The patient has chronic left hemiplegia, dysarthria and is not oriented at present. No other gross focal deficits noted. PSYCHIATRIC: Cannot be accurately assessed as patient is not oriented at present. LABORATORY DATA: Chest x-ray done shows no acute cardiopulmonary process. Sacral wound, initial Gram stain show gram-positive cocci in clusters, many gram- negative rods. White count of 13, H and H of 8 and 25, platelet count is 465 with 92% neutrophils, MCV is 91. Electrolytes are stable. BUN 18, creatinine 0.8, serum glucose 165. Lactic acid 2.4. AST, ALT, alkaline phosphatase within normal limits. Albumin is 2.4. CRP is 17.6. UA shows large leukocyte esterase, greater than 50 wbc's, and 3+ bacteria. CLINICAL IMPRESSION AND PLAN: The patient will be admitted to medical floor for sepsis with sacral decubitus, likely stage IV. We will consult Dr. Daniel who is furniture rental consultant for General Surgery for debridement. Wound cultures have been obtained and we will obtain blood cultures as well. He will be placed on vancomycin and Zosyn. Normal saline at 100 mL/h for a total of 2 bags. We will continue his atorvastatin, [place] p.r.n. for pain, folic acid, multivitamin, Flomax, and Senokot S as before. The patient's overall prognosis is guarded. I have initiated Palliative Care consultation as well. The patient likely will need placement. We will place consultation for Case Management as well for the same. We will continue to closely monitor him on medical floor for now. Job ID: [id number] [facility]
[2018-08-19] MEDS: Tamsulosin HCl 0.4 MG CAP PO SCH (20:29)
[2018-08-19] MEDS: Famotidine 20 MG TAB PO SCH (20:30)
[2018-08-19] MEDS: Senokot S 8.6-50 MG TAB PO SCH (20:30)
[2018-08-19] MEDS: Atorvastatin Calcium 20 MG TAB PO SCH (20:30)
[2018-08-19 20:56] LABS: Lactic Acid 1.9 mmol/L (0.5-2.2)
[2018-08-20] MEDS: Piperacillin/Tazobactam 4.5 GM in Sodium Chloride 0.9% 100 ML IVPB SCH ×3 (02:03→18:39)
[2018-08-20] MEDS: Sodium Chloride 0.9% 1,000 ML IV SCH (03:54)
[2018-08-20] MEDS: Vancomycin HCl 1 GM in Premix Bag 1 BAG IVPB SCH ×2 (03:54→16:54)
[2018-08-20] MEDS ORDERED: Vancomycin HCl 1 GM in Sodium Chloride 0.9% 250 ML 300 ML IVPB SCH (04:00)
--- NOTE | 2018-08-20 04:45 | CON ---
DATE OF CONSULTATION: REASON FOR CONSULT: Decubitus ulcer. HISTORY: Mr. Orr is an 88-year-old man who presented to the hospital with a sacral decubitus ulcer. He has a history of stroke with left hemiplegia and dysarthria and had a low-grade fever in the emergency room. According to the chart, the lesion on his sacrum has been present for 6-8 months, but he told me it has been present for 4 days. According to the chart, he has been an unreliable historian and certainly, the lesion appears somewhat more chronic than he would imply. Most of the history is obtained from chart review as the patient seems to have problems understanding my questions and his answers do not always make sense. PAST MEDICAL HISTORY: Stroke, hypertension, coronary artery disease and diabetes. SURGICAL HISTORY: Unknown. SOCIAL HISTORY: Negative for tobacco, alcohol, or drug abuse. FAMILY HISTORY: Noncontributory. OUTPATIENT MEDICATIONS: From the time of this prior discharge include: 1. Atorvastatin. 2. Vitamin D. 3. Glipizide. 4. Flomax. 5. Iron. 6. Folate. 7. Multivitamin. 8. Potassium. ALLERGIES: HE HAS NO KNOWN DRUG ALLERGIES. REVIEW OF SYSTEMS: Limited, but the patient denies any pain including at the site of his ulcer. LABORATORY DATA: White count is mildly elevated at 13.6, hematocrit 25.8, and platelets 465. BUN and creatinine are 18 and 0.86. LFTs are unremarkable. C-reactive protein is elevated at 17.6, albumin is low at 2.4. Urine was contaminated with 7-10 squamous cell, 3+ bacteria and greater than 50 white cells with a large leukocyte esterase and small blood. Swab of his open sacral wound showed moderate white cells, many gram-positive rods and moderate gram-positive cocci in clusters and gram-negative rods on the Gram stain. PHYSICAL EXAMINATION: VITAL SIGNS: The patient had a T-max of 99 degrees since admission, heart rate 73, respirations 20, blood pressure 115/61, 100% saturated on room air. GENERAL: Reveals an elderly man, who appears his stated age, in no acute distress. He is not flushed or toxic in appearance. HEENT: Unremarkable. NECK: Supple without lymphadenopathy or thyroid nodules. HEART: Regular in its rate and rhythm without murmurs, rubs, or gallops. LUNGS: Clear on auscultation anteriorly. ABDOMEN: Soft, nontender, nondistended. EXTREMITIES: Warm and well perfused. He does have some superficial ulcerations on his left elbow and his legs. GENITOURINARY: He has a full-thickness sacral wound with some necrotic skin and subcutaneous tissues in the base of the wound and some healed ulcerations on both buttocks. ASSESSMENT AND PLAN: Sacral decubitus ulcer. This will require debridement. I plan to do this tomorrow with the Wound Care Team since the appropriate supplies are not readily available and the patient is in agreement with this plan. His nutritional status is marginal and I would recommend dietary supplementation to try to help with wound healing. Due to his hemiparesis, he is marginally mobile and will require frequent turning and pressure offloading. It may be a challenge to get these chronic wounds to heal in this elderly malnourished patient. Job ID: [id number]
[2018-08-20 08:02] LABS: #Eosinphils 0.3 thou/uL (0.0-0.7); #Lymphocytes 1.2 thou/uL (1.20-3.40); #Monocytes 1.3 thou/uL (0.11-0.59); #Neutrophils 8.5 thou/uL (1.40-6.50); %Basophils 0.4 % (0.0-1.0); %Eosinophils 2.6 % (0.0-10.0); %Lymphocytes 10.7 % (21.0-51.0); %Monocytes 11.1 % (0.0-10.0); %Neutrophils 75.2 % (42.0-75.0); Hemoglobin 9.1 g/dL (14.0-18.0); Mean Corpuscular Hemoglobin 28.4 pg (27.0-31.0); Mean Corpuscular Volume 91.4 fL (78.0-98.0); Mean Platelet Volume 7.2 fL (7.4-10.4); Platelet Count 431 thou/uL (130-400); RBC Distribution Width 14.1 % (11.5-14.5); Red Blood Cell (RBC) Count 3.21 mill/uL (4.70-6.10); White Blood Cell (WBC) Count 11.3 thou/uL (4.8-10.8)
[2018-08-20 08:09] LABS: Anion Gap 12 mmol/L (10-20); BUN (Urea Nitrogen) 18 mg/dL (8.4-25.7); Calc. Creatinine Clearance 94 mL/min (70-130); Calcium 8.2 mg/dL (7.8-10.44); Carbon Dioxide 27 mmol/L (23-31); Chloride 105 mmol/L (98-107); Estimated GFR-MDRD Greater than 90; Glucose 111 mg/dL (83-110); Potassium 3.8 mmol/L (3.5-5.1); Sodium 140 mmol/L (136-145)
[2018-08-20] MEDS: Folic Acid 1 MG TAB PO SCH (08:36)
[2018-08-20] MEDS: Famotidine 20 MG TAB PO SCH ×2 (08:36→20:51)
[2018-08-20] MEDS: Senokot S 8.6-50 MG TAB PO SCH ×2 (08:36→20:51)
[2018-08-20] MEDS: Multivit, Therapeutic 1 TAB PO SCH (08:36)
[2018-08-20] MEDS: Acetaminophen 325 MG TAB PO PRN (09:52)
--- NOTE | 2018-08-20 11:50 | PDOC.PN ---
- Subjective Encounter Start Date: 08/20/18 Encounter Start Time: 11:49 Patient seen and examined, no new issues. - Objective Resuscitation Status - Order Detail: 08/19/18 16:07 Resuscitation Status Routine Resuscitation Status: FULL: Full Resuscitation Vital Signs & Weight: Vital Signs (12 hours) Temp Pulse Resp BP Pulse Ox 08/20/18 10:40 98.4 F 80 18 119/50 L 98 08/20/18 07:19 98.2 F 82 18 155/60 H 97 08/20/18 03:44 98.6 F 80 20 122/67 90 L Weight Weight 229 lb 15.074 oz I&O: 08/19/18 08/20/18 08/21/18 06:59 06:59 06:59 Intake Total 1590 Balance 1590 Result Diagrams: 08/20/18 07:32 08/20/18 07:33 Additional Labs: Accuchecks 08/20/18 08/20/18 08/19/18 10:45 05:41 20:37 POC Glucose 126 H 116 H 133 H Phys Exam - Physical Examination Constitutional: NAD HEENT: PERRLA, moist MMs Neck: no nodes, no JVD, supple Respiratory: no wheezing, no rales, no rhonchi Cardiovascular: RRR, no significant murmur, no rub Gastrointestinal: soft, non-tender, no distention, positive bowel sounds Musculoskeletal: pulses present, edema present Dx/Plan (1) UTI (urinary tract infection) Status: Acute Comment: Suspected with initial negative Ucx, continue Rocephin , d/c Vancomycin (2) DM II (diabetes mellitus, type II), controlled Code(s): E11.9 - TYPE 2 DIABETES MELLITUS WITHOUT COMPLICATIONS Status: Chronic Comment: ISS, Accuchecks, resume Glipizide 10mg BID (3) 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 Comment: Urinary retention likely multifactorial, consult Urology for evaluation, incontinence noted, considering dorsal slit procedure (4) Iron deficiency anemia Code(s): D50.9 - IRON DEFICIENCY ANEMIA, UNSPECIFIED Status: Chronic Comment : Start FeSO4 325mg BID (5) Severe muscle deconditioning Code(s): R29.898 - OTH SYMPTOMS AND SIGNS INVOLVING THE MUSCULOSKELETAL SYSTEM Status: Chronic Comment: PT/OT for functional assessement, fall risk precautions, SNF options (6) Urinary retention Code(s): R33.9 - RETENTION OF URINE, UNSPECIFIED Status: Chronic Comment: Likely will need cystoscopy, Clemens for bladder decompression - Plan * pending placement to SNF * no changes in plan of care * labs in AM
[2018-08-20] MEDS: Enoxaparin Sodium 40 MG/0.4 ML SYRINGE SC SCH (13:30)
[2018-08-20 15:15] LABS: Vancomycin, Trough 17.1 ug/mL
--- NOTE | 2018-08-20 20:41 | PDOC.GSPN ---
Surgery Progress Note: Subj - Subjective Narrative: We had some difficulty reaching the patient's this morning but were able to contact her and get consent for debridement of the sacral decubitus ulcer this afternoon. I saw the patient with the wound care team and sharply excised the necrotic skin and subcutaneous tissue and muscle. The wound extends down to the presacral fascia but there is no obvious erosion of the bone and minimal undermining. No abscess was encountered but the necrotic tissue was foul- smelling with a feculent odor. The patient tolerated the procedure well. There was minimal blood loss. No specimens were sent. We tried placing a condom catheter since the patient is incontinent, but this was not staying on so a Clemens catheter was placed to try to keep the wound dry. We will continue with mechanical debridement with dressing changes. I do not anticipate that any further surgical debridement will be necessary unless the wound progresses. Once the wound looks globe cleaner, I would likely recommend VAC dressing placement. Surgery Progress Note: Obj - Vital signs Vital signs: Vital Signs - Most Recent Temp Pulse Resp BP Pulse Ox 97.9 F 80 20 97/59 L 98 08/20/18 15:22 08/20/18 15:22 08/20/18 15:22 08/20/18 15:22 08/20/18 15:22 Surgery Progress Note: Results - Labs Result Diagrams: 08/20/18 07:32 08/20/18 07:33 Lab results: Laboratory Results - last 24 hr 08/20/18 08/20/18 08/20/18 10:45 14:52 15:27 POC Glucose 126 H 117 H Vancomycin Trough 17.1 08/20/18 20:24 POC Glucose 139 H Vancomycin Trough
[2018-08-20] MEDS: Tamsulosin HCl 0.4 MG CAP PO SCH (20:51)
[2018-08-20] MEDS: Atorvastatin Calcium 20 MG TAB PO SCH (20:51)
[2018-08-21] MEDS: Piperacillin/Tazobactam 4.5 GM in Sodium Chloride 0.9% 100 ML IVPB SCH ×3 (02:17→18:12)
[2018-08-21] MEDS: Vancomycin HCl 1 GM in Premix Bag 1 BAG IVPB SCH ×2 (04:11→15:51)
[2018-08-21 05:34] LABS: #Eosinphils 0.3 thou/uL (0.0-0.7); #Lymphocytes 1.2 thou/uL (1.20-3.40); #Monocytes 0.9 thou/uL (0.11-0.59); #Neutrophils 5.4 thou/uL (1.40-6.50); %Basophils 0.4 % (0.0-1.0); %Lymphocytes 14.9 % (21.0-51.0); %Monocytes 11.3 % (0.0-10.0); %Neutrophils 69.3 % (42.0-75.0); Hemoglobin 8.5 g/dL (14.0-18.0); Mean Corpuscular HGB CONC 31.7 g/dL (32.0-36.0); Mean Corpuscular Hemoglobin 28.7 pg (27.0-31.0); Mean Corpuscular Volume 90.7 fL (78.0-98.0); Mean Platelet Volume 6.7 fL (7.4-10.4); Platelet Count 454 thou/uL (130-400); RBC Distribution Width 13.8 % (11.5-14.5); Red Blood Cell (RBC) Count 2.95 mill/uL (4.70-6.10); White Blood Cell (WBC) Count 7.8 thou/uL (4.8-10.8)
[2018-08-21 05:54] LABS: Anion Gap 11 mmol/L (10-20); BUN (Urea Nitrogen) 11 mg/dL (8.4-25.7); Calc. Creatinine Clearance 104 mL/min (70-130); Carbon Dioxide 25 mmol/L (23-31); Chloride 106 mmol/L (98-107); Estimated GFR-MDRD Greater than 90; Glucose 124 mg/dL (83-110); Potassium 3.1 mmol/L (3.5-5.1); Sodium 139 mmol/L (136-145)
[2018-08-21] MEDS: Senokot S 8.6-50 MG TAB PO SCH ×2 (09:22→20:50)
[2018-08-21] MEDS: Famotidine 20 MG TAB PO SCH ×2 (09:22→20:50)
[2018-08-21] MEDS: Enoxaparin Sodium 40 MG/0.4 ML SYRINGE SC SCH (09:22)
[2018-08-21] MEDS: Folic Acid 1 MG TAB PO SCH (09:22)
[2018-08-21] MEDS: Multivit, Therapeutic 1 TAB PO SCH (09:22)
--- NOTE | 2018-08-21 12:18 | PDOC.PN ---
- Subjective Encounter Start Date: 08/21/18 Encounter Start Time: 12:16 Patient seen and examined, no new issues or complaints. - Objective Resuscitation Status - Order Detail: 08/19/18 16:07 Resuscitation Status Routine Resuscitation Status: FULL: Full Resuscitation Vital Signs & Weight: Vital Signs (12 hours) Temp Pulse Resp BP Pulse Ox 08/21/18 11:23 98.1 F 85 18 153/62 H 100 08/21/18 07:29 98.2 F 97 20 161/74 H 94 L 08/21/18 03:58 98.6 F 102 H 16 131/65 97 Weight Admit Weight 229 lb 15.074 oz Weight 229 lb 15.074 oz I&O: 08/20/18 08/21/18 08/22/18 06:59 06:59 06:59 Intake Total 1590 2300 Output Total 2050 Balance 1590 250 Result Diagrams: 08/21/18 05:00 08/21/18 05:00 Additional Labs: Accuchecks 08/21/18 08/21/18 08/20/18 11:30 05:49 20:24 POC Glucose 141 H 140 H 139 H 08/20/18 15:27 POC Glucose 117 H Phys Exam - Physical Examination Constitutional: NAD HEENT: PERRLA, moist MMs Neck: no nodes, no JVD, supple Respiratory: no wheezing, no rales, no rhonchi Cardiovascular: RRR, no significant murmur, no rub Gastrointestinal: soft, non-tender, no distention, positive bowel sounds Musculoskeletal: pulses present, edema present Dx/Plan (1) UTI (urinary tract infection) Status: Acute Comment: Suspected with initial negative Ucx, continue Rocephin , d/c Vancomycin (2) DM II (diabetes mellitus, type II), controlled Code(s): E11.9 - TYPE 2 DIABETES MELLITUS WITHOUT COMPLICATIONS Status: Chronic Comment: ISS, Accuchecks, resume Glipizide 10mg BID (3) 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 Comment: Urinary retention likely multifactorial, consult Urology for evaluation, incontinence noted, considering dorsal slit procedure (4) Iron deficiency anemia Code(s): D50.9 - IRON DEFICIENCY ANEMIA, UNSPECIFIED Status: Chronic Comment : Start FeSO4 325mg BID (5) Severe muscle deconditioning Code(s): R29.898 - OTH SYMPTOMS AND SIGNS INVOLVING THE MUSCULOSKELETAL SYSTEM Status: Chronic Comment: PT/OT for functional assessement, fall risk precautions, SNF options (6) Urinary retention Code(s): R33.9 - RETENTION OF URINE, UNSPECIFIED Status: Chronic Comment: Likely will need cystoscopy, Clemens for bladder decompression - Plan * wound care completed * sx following, s/p debridement * pending placement once cleared by subspecialists * cont current plan of care
[2018-08-21] MEDS: Acetaminophen 325 MG TAB PO PRN (12:43)
--- NOTE | 2018-08-21 14:43 | PDOC.GSPN ---
Surgery Progress Note: Subj - Subjective Narrative: Patient has already had dressing change today by wound care. They state that he had some superficial-appearing slough material but the odor was much better than yesterday and there appears to be viable tissue throughout. He denies any pain or problems. His family was present at the bedside today and I discussed the challenges of trying to get these wounds to heal. He has lost a significant amount of skin and subcutaneous tissue and muscle and the wound is all the way down to the sacrum. They're going to discuss whether they feel that they can manage his wound care at home or whether he will need placement after hospitalization. Surgery Progress Note: Obj - Vital signs Vital signs: Vital Signs - Most Recent Temp Pulse Resp BP Pulse Ox 98.1 F 85 18 153/62 H 100 08/21/18 11:23 08/21/18 11:23 08/21/18 11:23 08/21/18 11:23 08/21/18 11:23 Surgery Progress Note: Results - Labs Result Diagrams: 08/21/18 05:00 08/21/18 05:00 Lab results: Laboratory Results - last 24 hr 08/21/18 08/21/18 08/21/18 05:00 05:00 05:00 WBC 7.8 RBC 2.95 L Hgb 8.5 L Hct 26.8 L MCV 90.7 MCH 28.7 MCHC 31.7 L RDW 13.8 Plt Count 454 H MPV 6.7 L Neutrophils % 69.3 Lymphocytes % 14.9 L Monocytes % 11.3 H Eosinophils % 4.0 Basophils % 0.4 Neutrophils # 5.4 Lymphocytes # 1.2 Monocytes # 0.9 H Eosinophils # 0.3 Basophils # 0.0 Sodium 139 Potassium 3.1 L Chloride 106 Carbon Dioxide 25 Anion Gap 11 BUN 11 Creatinine 0.75 Estimated GFR (MDRD) Greater than 90 Glucose 124 H POC Glucose Calcium 8.0 Prealbumin 6.0 L 08/21/18 08/21/18 05:49 11:30 WBC RBC Hgb Hct MCV MCH MCHC RDW Plt Count MPV Neutrophils % Lymphocytes % Monocytes % Eosinophils % Basophils % Neutrophils # Lymphocytes # Monocytes # Eosinophils # Basophils # Sodium Potassium Chloride Carbon Dioxide Anion Gap BUN Creatinine Estimated GFR (MDRD) Glucose POC Glucose 140 H 141 H Calcium Prealbumin
[2018-08-21] MEDS: Atorvastatin Calcium 20 MG TAB PO SCH (20:50)
[2018-08-21] MEDS: Tamsulosin HCl 0.4 MG CAP PO SCH (20:51)
[2018-08-22] MEDS: Piperacillin/Tazobactam 4.5 GM in Sodium Chloride 0.9% 100 ML IVPB SCH ×3 (02:41→17:30)
[2018-08-22] MEDS: Vancomycin HCl 1 GM in Premix Bag 1 BAG IVPB SCH ×2 (04:53→15:34)
[2018-08-22] MEDS: Senokot S 8.6-50 MG TAB PO SCH ×2 (08:16→20:51)
[2018-08-22] MEDS: Enoxaparin Sodium 40 MG/0.4 ML SYRINGE SC SCH (08:42)
[2018-08-22] MEDS: Multivit, Therapeutic 1 TAB PO SCH (08:43)
[2018-08-22] MEDS: Folic Acid 1 MG TAB PO SCH (08:43)
[2018-08-22] MEDS: Famotidine 20 MG TAB PO SCH ×2 (08:43→20:50)
[2018-08-22] MEDS ORDERED: Collagenase 250 UNITS/GM Ointment 30 GM TUBE TOP PRN (09:38)
--- NOTE | 2018-08-22 18:08 | PRG ---
DATE OF SERVICE: 08/22/2018 SUBJECTIVE: The patient is denying any specific problems or concerns. He is not terribly verbal, difficult to understand when he does verbalize. OBJECTIVE: VITAL SIGNS: Temperature 98.2, pulse 87, respirations 16, O2 saturation 95% on room air, and blood pressure 121/62 up to 154/76. GENERAL: He is awake and alert. HEART: Regular. LUNGS: Clear bilaterally. ABDOMEN: Soft, nontender. EXTREMITIES: Reveal significant muscle atrophy in all extremities. Has some interosseous wasting in the hands. LABORATORY DATA: Bacterial culture of the coccyx growing Proteus mirabilis, Escherichia coli, and a presumptive enterococcus species. Blood sugars 104 to 156. Urine culture growing Proteus mirabilis, which is sensitive to everything, but nitrofurantoin. IMPRESSION AND PLAN: 1. Infected sacral decubitus, followed by surgery, had debridement. Plan is to continue to try to debride the wound to the point where wound VAC could be placed, concern for healing given the patient's generalized debility and poor nutritional status. 2. Generalized debility. The patient apparently may have some history of a stroke with some weakness. He appears almost to have some type of cervical spinal stenosis with some generalized atrophy of both upper and lower extremities. Unfortunately, given his age and advanced status, would not likely be a candidate for any intervention if this was found. Therefore, we will not pursue that any further. 3. Bladder outlet obstruction. The patient had a history of incipient phimosis with a history of prostate cancer and radiation revealing a thickened, possibly inflamed bladder with some bilateral hydroureters, thought to be related to radiation and increased pressures within the bladder. The patient had deferred any further cystoscopy or interventions when he was here in June. 4. Diabetes mellitus, type 2, well controlled. 5. Urinary tract infection. Continue with Rocephin for the Proteus. 6. Chronic iron deficiency anemia. Continue iron supplements. 7. Urinary retention. Continue the Clemens for bladder decompression. 8. Disposition: The patient will likely need placement. Apparently, his is amenable to this. [facility] has been involved in this case as well. Job ID: [id number]
[2018-08-22] MEDS: Tamsulosin HCl 0.4 MG CAP PO SCH (20:50)
[2018-08-22] MEDS: Atorvastatin Calcium 20 MG TAB PO SCH (20:50)
--- NOTE | 2018-08-22 21:54 | PDOC.GSPN ---
Surgery Progress Note: Subj - Subjective Narrative: There is some superficial slough but no odor or purulence. I have ordered Santyl and we will continue with wet-to-dry dressings daily until the wound has a good clean base and then changing to a VAC dressing. He will likely need custodial placement. Surgery Progress Note: Obj - Vital signs Vital signs: Vital Signs - Most Recent Temp Pulse Resp BP Pulse Ox 98.7 F 84 16 160/70 H 96 08/22/18 20:00 08/22/18 20:00 08/22/18 20:00 08/22/18 20:00 08/22/18 20:00 Surgery Progress Note: Results - Labs Result Diagrams: 08/21/18 05:00 08/21/18 05:00 Lab results: Laboratory Results - last 24 hr 08/22/18 08/22/18 08/22/18 11:08 15:04 20:45 POC Glucose 156 H 154 H 162 H
[2018-08-23] MEDS: Piperacillin/Tazobactam 4.5 GM in Sodium Chloride 0.9% 100 ML IVPB SCH ×3 (02:57→17:41)
[2018-08-23] MEDS: Vancomycin HCl 1 GM in Premix Bag 1 BAG IVPB SCH ×2 (03:00→16:31)
[2018-08-23] MEDS: Famotidine 20 MG TAB PO SCH ×2 (08:05→21:04)
[2018-08-23] MEDS: Multivit, Therapeutic 1 TAB PO SCH (08:05)
[2018-08-23] MEDS: Enoxaparin Sodium 40 MG/0.4 ML SYRINGE SC SCH (08:05)
[2018-08-23] MEDS: Senokot S 8.6-50 MG TAB PO SCH ×2 (08:06→21:04)
[2018-08-23] MEDS: Folic Acid 1 MG TAB PO SCH (08:06)
--- NOTE | 2018-08-23 15:44 | PDOC.PN ---
- Subjective Encounter Start Date: 08/23/18 Encounter Start Time: 13:00 Doing ok. Has no complaints. - Objective Resuscitation Status - Order Detail: 08/19/18 16:07 Resuscitation Status Routine Resuscitation Status: FULL: Full Resuscitation Vital Signs & Weight: Vital Signs (12 hours) Temp Pulse Resp BP Pulse Ox 08/23/18 15:15 98.8 F 85 18 100/68 97 08/23/18 11:20 97.3 F L 82 14 131/58 L 95 08/23/18 07:31 99.4 F 86 20 148/69 H 96 08/23/18 04:00 98.8 F 75 16 154/68 H 98 Weight Admit Weight 229 lb 15.074 oz Weight 229 lb 15.074 oz I&O: 08/22/18 08/23/18 08/24/18 06:59 06:59 06:59 Intake Total 2680 1840 1020 Output Total 2200 950 850 Balance 480 890 170 Result Diagrams: 08/21/18 05:00 08/21/18 05:00 Additional Labs: Accuchecks 08/23/18 08/23/18 08/23/18 15:10 11:03 06:12 POC Glucose 148 H 153 H 124 H 08/22/18 20:45 POC Glucose 162 H Phys Exam - Physical Examination Constitutional: NAD Respiratory: no wheezing, no rales, no rhonchi, clear to auscultation bilateral Cardiovascular: RRR, no significant murmur Gastrointestinal: soft, non-tender, no distention, positive bowel sounds Musculoskeletal: no edema generalized muscle atrophy. Generalized weakness/debility. Psychiatric: normal affect Deviation from normal: Appropriately follows commands and answers questions. Dx/Plan (1) Sacral decubitus ulcer, stage IV Code(s): L89.154 - PRESSURE ULCER OF SACRAL REGION, STAGE 4 Status: Acute (2) Decubitus ulcer, stage 4 with infection Code(s): L89.94 - PRESSURE ULCER OF UNSPECIFIED SITE, STAGE 4; L08.9 - LOCAL INFECTION OF THE SKIN AND SUBCUTANEOUS TISSUE, UNSP Status: Acute (3) UTI (urinary tract infection) Status: Acute Comment: Suspected with initial negative Ucx, continue Rocephin , d/c Vancomycin (4) DM II (diabetes mellitus, type II), controlled Code(s): E11.9 - TYPE 2 DIABETES MELLITUS WITHOUT COMPLICATIONS Status: Chronic Comment: ISS, Accuchecks, resume Glipizide 10mg BID (5) 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 Comment: Urinary retention likely multifactorial, consult Urology for evaluation, incontinence noted, considering dorsal slit procedure (6) Severe muscle deconditioning Code(s): R29.898 - OTH SYMPTOMS AND SIGNS INVOLVING THE MUSCULOSKELETAL SYSTEM Status: Chronic Comment: PT/OT for functional assessement, fall risk precautions, SNF options (7) Urinary retention Code(s): R33.9 - RETENTION OF URINE, UNSPECIFIED Status: Chronic Comment: Likely will need cystoscopy, Clemens for bladder decompression - Plan * Polymicrobial infection in the sacral ulcer. * Proteus in urine. * All fairly sensitive. * Po abx will be an option. * Surg following. * Will need W to D dressings and eventually VAC. * Placement.
[2018-08-23] MEDS: Atorvastatin Calcium 20 MG TAB PO SCH (21:03)
[2018-08-23] MEDS: Tamsulosin HCl 0.4 MG CAP PO SCH (21:04)
[2018-08-24] MEDS: Piperacillin/Tazobactam 4.5 GM in Sodium Chloride 0.9% 100 ML IVPB SCH ×2 (01:59→09:23)
[2018-08-24] MEDS: Folic Acid 1 MG TAB PO SCH (09:22)
[2018-08-24] MEDS: Multivit, Therapeutic 1 TAB PO SCH (09:22)
[2018-08-24] MEDS: Senokot S 8.6-50 MG TAB PO SCH (09:23)
[2018-08-24] MEDS: Famotidine 20 MG TAB PO SCH (09:23)
[2018-08-24] MEDS: Enoxaparin Sodium 40 MG/0.4 ML SYRINGE SC SCH (09:23)
[2018-08-24 11:16] VITALS: BP 138/80; TEMP 98.3
--- NOTE | 2018-08-24 15:30 | PDOC.GSPN ---
Surgery Progress Note: Subj - Subjective Narrative: Wound looks pretty good. There is some very superficial slough but no odor or purulence. Minimal sharp excisional debridement of some subcutaneous tissues. Continue wet-to-dry dressings. I'll see him in my clinic next week. Surgery Progress Note: Obj - Vital signs Vital signs: Vital Signs - Most Recent Temp Pulse Resp BP Pulse Ox 98.3 F 74 18 138/80 95 08/24/18 11:15 08/24/18 11:15 08/24/18 11:15 08/24/18 11:15 08/24/18 11:15 Surgery Progress Note: Results - Labs Result Diagrams: 08/21/18 05:00 08/21/18 05:00 Lab results: Laboratory Results - last 24 hr 08/24/18 11:12 POC Glucose 155 H
--- NOTE | 2018-08-25 08:27 | DIS ---
DATE OF ADMISSION: 08/19/2018 DATE OF DISCHARGE: 08/24/2018 DISCHARGE DIAGNOSES: 1. Infected sacral decubitus. 2. Generalized debility, history of cerebrovascular accident with left hemiplegia, diffuse muscle atrophy. 3. Hypertension. 4. Coronary artery disease. 5. Diabetes mellitus. HISTORY OF PRESENT ILLNESS: The patient is an 88-year-old male, who presented to the hospital. The specific details of why he came were a bit unclear. The patient was not giving good history, but appears as though he came because his was concerned that the patient was having some infection of his sacral decubitus. The patient's exam did in fact reveal a large sacral ulcer that was deeply eroded and had a foul odor consistent with infection. HOSPITAL COURSE: The patient was admitted, started on broad-spectrum antibiotics, seen in consultation by Surgery. Dr. Daniel saw the patient, debrided the wound extensively, started wet-to-dry dressings. She had follow up routinely with debridement, however, subsequent debridement revealed only very superficial sloughing and very friable tissue below, so she did not continue to debride. The patient's urine culture did ultimately grow Proteus. The wound culture grew Proteus mirabilis, E coli and enterococcus faecalis, fortunately all of which were generally sensitive. The patient appeared to feel better. Once the infection was under better control, his made it clear that she had no ability to physically manage him at this point and deal with the wound. Therefore, he was felt to be appropriate for [facility]. Case Management was involved and found the patient appropriate placement. The patient was amenable and transfer was arranged. PHYSICAL EXAMINATION: VITAL SIGNS: On the day of discharge temperature 98.3 pulse 74, respirations 18 , O2 saturation 95% on room air, and BP 138/80. GENERAL APPEARANCE: Age-appropriate male, in no distress. He is awake and alert. HEART: Regular rate and rhythm without murmurs. LUNGS: Clear. ABDOMEN: Benign. EXTREMITIES: Have some generalized muscle atrophy. DISPOSITION: The patient is discharged to [facility] in [place]. MEDICATIONS: He will be on: 1. Dulcolax. 2. Pepcid. 3. Senokot. Continue with, 1. Glipizide. 2. Tamsulosin. 3. Vitamin D3. 4. Atorvastatin. 5. Ferrous sulfate. 6. Folic acid. 7. Multivitamin. 8. Potassium chloride. 9. Augmentin 875 one p.o. b.i.d. FOLLOWUP: He will have follow up with Dr. Daniel. Dr. Leon will follow the patient at the facility there. He can return to the hospital should he have any problems prior to that time. Time dedicated to discharge activities, including face to face time with the patient, was 34 min. Job ID: [id number] MTDD
== END 2018-08-24 15:20 | DRG 853 ==
LOC: ERS 12:08 → SURG A 16:58
PROVIDERS: ADMIT Internal Medicine; ATTEND Internal Medicine
PROC: 0KBN0ZZ Excision of Right Hip Muscle, Open Approach (ICD-10-PCS; principal; 2018-08-21)
PROC: 0KBP0ZZ Excision of Left Hip Muscle, Open Approach (ICD-10-PCS; 2018-08-21)
PROC: 0T9B70Z Drainage of Bladder with Drainage Device, Via Natural or Artificial Opening (ICD-10-PCS; 2018-08-21)
PROC: 0JB70ZZ Excision of Back Subcutaneous Tissue and Fascia, Open Approach (ICD-10-PCS; 2018-08-21)
DX: A41.9 Sepsis, unspecified organism (principal); L89.154 Pressure ulcer of sacral region, stage 4; I69.354 Hemiplegia and hemiparesis following cerebral infarction affecting left non-dominant side; N13.6 Pyonephrosis; I10 Essential (primary) hypertension; I25.10 Atherosclerotic heart disease of native coronary artery without angina pectoris; E11.9 Type 2 diabetes mellitus without complications; D50.9 Iron deficiency anemia, unspecified; R33.9 Retention of urine, unspecified; B96.4 Proteus (mirabilis) (morganii) as the cause of diseases classified elsewhere; R32 Unspecified urinary incontinence; B96.20 Unspecified Escherichia coli [E. coli] as the cause of diseases classified elsewhere; Z85.46 Personal history of malignant neoplasm of prostate; I69.322 Dysarthria following cerebral infarction; Z99.3 Dependence on wheelchair; Z79.899 Other long term (current) drug therapy; Z79.84 Long term (current) use of oral hypoglycemic drugs
CPT/HCPCS: 36415; 36416; 71045; 80048; 80053; 80202; 81003; 81015; 83605; 84134; 85025; 86140; 87040; 87070; 87077; 87086; 87186; 87205; 94760; 96361; 96365; 96375; J0696; J1650; J2543; J3370; J3490; J7050

== ENCOUNTER 2018-12-10 21:39 | Inpatient (IN) | payer MEDICARE, OTHER ==
[2018-12-10 22:55] LABS: #Eosinphils 0.2 thou/uL (0.0-0.7); #Lymphocytes 1.6 thou/uL (1.20-3.40); #Neutrophils 10.3 thou/uL (1.40-6.50); %Basophils 0.4 % (0.0-1.0); %Eosinophils 1.8 % (0.0-10.0); %Lymphocytes 12.1 % (21.0-51.0); %Monocytes 7.5 % (0.0-10.0); %Neutrophils 78.2 % (42.0-75.0); Hemoglobin 10.1 g/dL (14.0-18.0); Mean Corpuscular HGB CONC 29.8 g/dL (32.0-36.0); Mean Corpuscular Hemoglobin 24.7 pg (27.0-31.0); Mean Platelet Volume 6.6 fL (7.4-10.4); Platelet Count 643 thou/uL (130-400); Red Blood Cell (RBC) Count 4.08 mill/uL (4.70-6.10); White Blood Cell (WBC) Count 13.2 thou/uL (4.8-10.8)
[2018-12-10 23:14] LABS: ALT (SGPT) 7 U/L (8-55); AST (SGOT) 11 U/L (5-34); Albumin 2.4 g/dL (3.4-4.8); Alkaline Phosphatase 78 U/L (40-110); Anion Gap 12 mmol/L (10-20); BUN (Urea Nitrogen) 16 mg/dL (8.4-25.7); Bilirubin, Total Less than 0.2 mg/dL (0.2-1.2); Calc. Creatinine Clearance 0 mL/min (70-130); Calcium 8.7 mg/dL (7.8-10.44); Carbon Dioxide 29 mmol/L (23-31); Chloride 95 mmol/L (98-107); Estimated GFR-MDRD Greater than 90; Globulin 4.7 g/dL (2.4-3.5); Potassium 3.9 mmol/L (3.5-5.1); Protein, Total 7.1 g/dL (5.8-8.1); Sodium 132 mmol/L (136-145)
--- NOTE | 2018-12-10 23:17 | RAD ---
AP CHEST: 12/10/18 HISTORY: Tachycardia. Lungs appear clear. Heart and mediastinum unremarkable. Vasculature normal. IMPRESSION: No acute findings. POS: OFF
[2018-12-10 23:20] LABS: Glucose 650 mg/dL (83-110)
[2018-12-11] MEDS ORDERED: Piperacillin/Tazobactam 4.5 GM VIAL ONE (00:20)
[2018-12-11] MEDS ORDERED: Ondansetron PF 4 MG/2 ML Vial IVP PRN (00:30)
[2018-12-11] MEDS ORDERED: Ondansetron ODT 4 MG TAB PO PRN (00:30)
[2018-12-11] MEDS ORDERED: Dextrose 5% in Water 1,000 ML IV PRN (00:32)
[2018-12-11] MEDS ORDERED: Dextrose 50% Abboject 50 ML SYRINGE SLOW IVP PRN (00:32)
[2018-12-11] MEDS ORDERED: Insulin Regular 300 UNITS/3 ML VIAL ONE (00:51)
[2018-12-11] MEDS ORDERED: Vancomycin HCl 1.5 GM in Sodium Chloride 0.9% 250 ML 300 ML IVPB SCH (01:15)
[2018-12-11 03:48] LABS: #Eosinphils 0.2 thou/uL (0.0-0.7); #Lymphocytes 1.7 thou/uL (1.20-3.40); #Monocytes 1.6 thou/uL (0.11-0.59); #Neutrophils 12.7 thou/uL (1.40-6.50); %Basophils 0.1 % (0.0-1.0); %Eosinophils 1.3 % (0.0-10.0); %Lymphocytes 10.2 % (21.0-51.0); %Monocytes 9.9 % (0.0-10.0); %Neutrophils 78.5 % (42.0-75.0); Hemoglobin 8.8 g/dL (14.0-18.0); Mean Corpuscular HGB CONC 31.1 g/dL (32.0-36.0); Mean Corpuscular Hemoglobin 25.7 pg (27.0-31.0); Mean Corpuscular Volume 82.5 fL (78.0-98.0); Mean Platelet Volume 6.3 fL (7.4-10.4); Platelet Count 649 thou/uL (130-400); RBC Distribution Width 17.6 % (11.5-14.5); Red Blood Cell (RBC) Count 3.43 mill/uL (4.70-6.10); White Blood Cell (WBC) Count 16.2 thou/uL (4.8-10.8)
[2018-12-11 04:09] LABS: Anion Gap 11 mmol/L (10-20); BUN (Urea Nitrogen) 13 mg/dL (8.4-25.7); Calc. Creatinine Clearance 0 mL/min (70-130); Calcium 8.1 mg/dL (7.8-10.44); Carbon Dioxide 27 mmol/L (23-31); Chloride 98 mmol/L (98-107); Estimated GFR-MDRD Greater than 90; Glucose 349 mg/dL (83-110); Potassium 3.4 mmol/L (3.5-5.1); Sodium 133 mmol/L (136-145)
--- NOTE | 2018-12-11 04:27 | HP ---
PRIMARY CARE PHYSICIAN: Bao Leon MD CODE STATUS: Full code. TIME OF EVALUATION: 1:50 a.m. CHIEF COMPLAINT: The patient was transferred to hospital with possible sepsis. HISTORY OF PRESENT ILLNESS: The patient is a poor historian. Family does not have details why the patient was transferred. The information has been gathered from records and medical staff. This is an 88-year-old male patient with past medical history of high blood pressure, CVA, diabetes, came to the hospital, transferred from retirement since the patient was having possible sepsis and generalized weakness. Symptoms were moderate. No clear triggers, no alleviating factors. Possible source for infection is the patient has bedsore. Also, he was found to have uncontrolled diabetes, blood sugars 350. Insulin has been given in the ER. No evidence of DKA. REVIEW OF SYSTEMS: Unable to obtain. The patient is confused and very poor historian, can answer very simple questions. PAST MEDICAL HISTORY: As mentioned in the HPI. PAST SURGICAL HISTORY: Unable to obtain. PSYCH HISTORY: Unable to obtain due to the patient's mental status. SOCIAL HISTORY: The patient lives at a retirement. No alcohol. No drugs. No smoking history. FAMILY HISTORY: Unable to obtain. The patient is nonverbal. KNOWN ALLERGIES: No known drug allergies. REPORTED MEDICATIONS: 1. Atorvastatin. 2. Glipizide. 3. Tamsulosin. 4. Metoprolol. 5. Janumet. PHYSICAL EXAMINATION: VITAL SIGNS: On presentation, blood pressure 118/84 with heart rate 110, temperature 99.7, and oxygen saturation 96% on room air. GENERAL APPEARANCE: The patient is alert, disoriented, not in very good mood. HEENT: Eyes, normal conjunctiva. Moist oral mucosa. Anicteric. No JVD. RESPIRATORY: Bilateral air entry. No rales. No wheezes. Symmetric expansion. CARDIOVASCULAR: Normal rate. Regular rhythm. No murmurs. No gallops. No edema. ABDOMEN: Soft. Normal bowel sounds. MUSCULOSKELETAL: Baseline range of motion and strength. Skin is warm and intact. No pallor. No rash. No redness. The patient does have a decubitus ulcer. Capillary refill seems to be intact. NEUROLOGIC: No evidence of any new focal weakness. Unable to fully explore. The patient does have left side hemiplegia from sequela from previous stroke. PSYCHIATRIC: The patient is in good mood. No anxiety. Suboptimal judgment. DIAGNOSTIC DATA: Chest x-ray was reviewed. The patient had no acute findings. LABORATORY DATA: Reviewed. The patient has white count of 13.2, hemoglobin of 10.1, MCV of 83, and platelet count of 643. Sodium 132, potassium 3.9, chloride 95, carbon dioxide 29, anion gap 12, BUN 16, creatinine 0.85, GFR greater than 90, glucose 350, lactic acid 1.0, and calcium 9.7. Total bilirubin less than 0.2, AST 11, ALT 7, and alk phos 78. Serum total protein 7.1, albumin 2.4, globulin 4.7, and albumin to globulin ratio 0.5. Beta-hydroxybutyrate 0.6. ASSESSMENT AND PLAN: The patient will be placed in the hospital with following medical problems: 1. Possible sepsis. The patient presented with sustained tachycardia, leukocytosis, originally thought the first source could be the decubital ulcers. The patient is to receive wound care. The patient is to receive antibiotics. IV hydration with caution given possible underlying heart disease. 2. Uncontrolled diabetes with blood sugar 350. There is no DKA. The patient also received fluids, insulin, we will continue to monitor fingerstick to get better control. 3. Hyponatremia, sodium 132. The corrected one is normal, so it is hypertonic hyponatremia. 4. Normocytic anemia likely due to chronic disease. No need for any acute intervention at this point. 5. Thrombocytosis may be reactive to possible infection. 6. Decubitus ulcer. We will consult Wound Care. This is likely the source for sepsis. 7. Controlled hypertension. Reconcile home medications, adjust treatment as needed. We will not treat aggressively since the patient has sepsis, is at risk for hypotension. Job ID: [id number]
[2018-12-11 04:44] LABS: Bacteria/HPF None Seen HPF (None Seen); Bilirubin Negative (Negative); Blood, Urine Trace (Negative); Clarity Turbid (Clear); Glucose, Urine (Dipstick) Greater than 1000 mg/dL (Negative); Leukocyte 500 Leu/uL (Negative); Nitrite Negative (Negative); Protein, Urine (Dipstick) 20 mg/dL (Neg-Trace); Squamous Epithelial None Seen HPF (0-3); Urobilinogen Normal mg/dL (Less than 2); WBC/HPF Greater than 50 HPF (0-3)
[2018-12-11 06:01] VITALS: BMI 26.4
[2018-12-11] MEDS: HumaLOG 300 UNITS/3 ML VIAL SC PRN ×3 (06:15→17:15)
[2018-12-11] MEDS: Piperacillin/Tazobactam 4.5 GM in Sodium Chloride 0.9% 100 ML IVPB SCH ×2 (08:02→17:14)
[2018-12-11] MEDS: Enoxaparin Sodium 40 MG/0.4 ML SYRINGE SC SCH (08:03)
[2018-12-11] MEDS: Tamsulosin HCl 0.4 MG CAP PO SCH (09:42)
[2018-12-11] MEDS: Atorvastatin Calcium 20 MG TAB PO SCH (09:42)
[2018-12-11] MEDS: glipiZIDE 10 MG TAB PO SCH ×2 (09:42→20:51)
[2018-12-11] MEDS: Vancomycin HCl 1 GM in Premix Bag 1 BAG IVPB SCH (14:06)
[2018-12-11] MEDS: Acetaminophen 325 MG TAB PO PRN (18:21)
[2018-12-11] MEDS ORDERED: FLU VACC TS2019-20(65YR UP)/PF 180 MCG/0.5 ML SYRINGE IM ONE (21:00)
[2018-12-12] MEDS: Piperacillin/Tazobactam 4.5 GM in Sodium Chloride 0.9% 100 ML IVPB SCH ×4 (00:30→17:37)
[2018-12-12] MEDS: Vancomycin HCl 1 GM in Premix Bag 1 BAG IVPB SCH ×3 (01:28→15:15)
[2018-12-12] MEDS: HumaLOG 300 UNITS/3 ML VIAL SC PRN ×2 (06:20→16:04)
[2018-12-12] MEDS: Atorvastatin Calcium 20 MG TAB PO SCH (08:31)
[2018-12-12] MEDS: glipiZIDE 10 MG TAB PO SCH ×2 (08:31→20:51)
[2018-12-12] MEDS: Tamsulosin HCl 0.4 MG CAP PO SCH (08:31)
[2018-12-12] MEDS: Enoxaparin Sodium 40 MG/0.4 ML SYRINGE SC SCH (08:31)
[2018-12-12 10:23] LABS: Base Excess-Venous 5.2 mmol/L (-2.0 to 3.0); Bicarbonate (HCO3v) 29.9 mmol/L (22.0-28.0); CO2 Tension (PvCO2) 43.9 mmHg (40.0-50.0); Calcium, Ionized 1.15 mmol/L (See Comments:); Chloride 98 mmol/L (98-107); Hemoglobin - Calc 11.5 g/dL (14.0-18.0); Potassium 3.9 mmol/L (3.5-5.1); Sodium 137 mmol/L (138-145); T. Carbon Dioxide 31.3 mmol/L (22.0-28.0); vO2 Saturation-calc 90.8 % (60.0-85.0)
[2018-12-12 13:35] LABS: Vancomycin, Trough 14.9 ug/mL
[2018-12-12] MEDS ORDERED: Ondansetron ODT 4 MG TAB PO PRN (14:00)
--- NOTE | 2018-12-12 16:17 | PDOC.HOSPP ---
- Subjective Subjective: Patient denies complaints. Says he feels ok. - Objective Vital Signs & Weight: Vital Signs (12 hours) Temp Pulse Resp BP Pulse Ox 12/12/18 11:00 98.0 F 89 18 103/62 96 12/12/18 08:30 96 12/12/18 08:00 98.2 F 92 20 107/49 L 96 Weight Admit Weight 173 lb 14.4 oz Weight 173 lb 14.4 oz I&O: 12/11/18 12/12/18 12/13/18 06:59 06:59 06:59 Intake Total 2570 Output Total 1750 Balance 820 Result Diagrams: 12/11/18 03:38 12/11/18 03:38 Additional Labs: Accuchecks 12/12/18 12/12/18 12/12/18 15:38 11:12 06:19 POC Glucose 248 H 169 H 215 H 12/11/18 12/11/18 19:53 16:09 POC Glucose 291 H 264 H Hospitalist ROS - Medication Medications: Active Medications Generic Name Dose Route Start Last Admin Trade Name Avery PRN Reason Stop Dose Admin Acetaminophen 650 mg 12/11/18 00:30 12/11/18 18:21 Tylenol PO 650 mg Q4H PRN Administration Headache/Fever/Mild Pain (1-3) Atorvastatin Calcium 20 mg 12/11/18 09:00 12/12/18 08:31 Lipitor PO 20 mg DAILY EMERALD Administration Enoxaparin Sodium 40 mg 12/11/18 09:00 12/12/18 08:31 Lovenox SC 40 mg 0900 EMERALD Administration Glipizide 10 mg 12/11/18 09:00 12/12/18 08:31 Glucotrol PO 10 mg BID EMERALD Administration Piperacillin Sod/Tazobactam 100 mls @ 200 mls/hr 12/11/18 08:00 12/12/18 10: 10 Sod 4.5 gm/ Sodium Chloride IVPB 100 mls 0800,1600,2359 EMERALD Administration Vancomycin HCl 1 gm/ Device 200 mls @ 200 mls/hr 12/11/18 14:00 12/12/18 15: 15 IVPB 200 mls 0200,1400 EMERALD Administration Insulin Human Lispro 0 units 12/11/18 00:32 12/12/18 06:20 Humalog SC 3 units .MILD SLIDING SCALE PRN Administration Mild Correctional Scale Sodium Chloride 10 ml 12/11/18 09:00 12/12/18 09:28 Flush - Normal Saline IVF 10 ml Q12HR EMERALD Administration Tamsulosin HCl 0.4 mg 12/11/18 09:00 12/12/18 08:31 Flomax PO 0.4 mg DAILY EMERALD Administration - Exam General Appearance: NAD, awake alert Heart: RRR, no gallops, no rubs, normal peripheral pulses, II/IV Respiratory: CTAB, no wheezes, no rales, no ronchi, normal chest expansion, no tachypnea, normal percussion Gastrointestinal: soft, non-tender, non-distended, normal bowel sounds, no palpable masses, no hepatomegaly, no splenomegaly, no bruit Extremities: no cyanosis, no clubbing, no edema Skin: normal turgor Skin - other findings: Multiple decubiti. (See wound care photos) Musculoskeletal: diffuse muscle atrophy Psychiatric: normal affect, not oriented Hosp A/P (1) Decubitus ulcer, stage 4 with infection Code(s): L89.94 - PRESSURE ULCER OF UNSPECIFIED SITE, STAGE 4; L08.9 - LOCAL INFECTION OF THE SKIN AND SUBCUTANEOUS TISSUE, UNSP Status: Acute (2) UTI (urinary tract infection) Status: Acute (3) Severe muscle deconditioning Code(s): R29.898 - OTH SYMPTOMS AND SIGNS INVOLVING THE MUSCULOSKELETAL SYSTEM Status: Chronic (4) Urinary retention Code(s): R33.9 - RETENTION OF URINE, UNSPECIFIED Status: Chronic (5) HTN (hypertension) Code(s): I10 - ESSENTIAL (PRIMARY) HYPERTENSION Status: Acute (6) DM II (diabetes mellitus, type II), controlled Code(s): E11.9 - TYPE 2 DIABETES MELLITUS WITHOUT COMPLICATIONS Status: Chronic - Plan Some indication in the record that the patient was on hospice. DW CM. Apparently, that had been revoked. Likely UTI or infected decub or both. Surgery debrided the sacrum at previous visit. Will consult again. Cont. IV abx. Covering Pseudomonas. Glucose monitoring.
[2018-12-12] MEDS: Ferrous Sulfate 325 MG TAB PO SCH (17:37)
[2018-12-12] MEDS: Vancomycin HCl 25 MG/ML Oral PO SCH (18:44)
[2018-12-12] MEDS: Famotidine 20 MG TAB PO SCH (20:51)
[2018-12-13] MEDS: Vancomycin HCl 25 MG/ML Oral PO SCH ×5 (00:33→23:40)
[2018-12-13] MEDS: Piperacillin/Tazobactam 4.5 GM in Sodium Chloride 0.9% 100 ML IVPB SCH ×4 (00:34→23:40)
[2018-12-13] MEDS: Vancomycin HCl 1 GM in Premix Bag 1 BAG IVPB SCH ×2 (01:40→13:41)
[2018-12-13] MEDS: glipiZIDE 10 MG TAB PO SCH ×2 (08:10→20:59)
[2018-12-13] MEDS: Mirtazapine 15 MG TAB PO SCH (08:10)
[2018-12-13] MEDS: Tamsulosin HCl 0.4 MG CAP PO SCH (08:10)
[2018-12-13] MEDS: Famotidine 20 MG TAB PO SCH ×2 (08:10→20:59)
[2018-12-13] MEDS: Ferrous Sulfate 325 MG TAB PO SCH ×2 (08:10→16:19)
[2018-12-13] MEDS: Potassium Chloride 20 MEQ TAB PO SCH (08:10)
[2018-12-13] MEDS: Saccharomyces boulardii 250 MG CAP PO SCH (08:11)
[2018-12-13] MEDS: Folic Acid 1 MG TAB PO SCH (08:11)
[2018-12-13] MEDS: Atorvastatin Calcium 20 MG TAB PO SCH (08:11)
[2018-12-13] MEDS: Multivit, Therapeutic 1 TAB PO SCH (08:11)
[2018-12-13] MEDS: Enoxaparin Sodium 40 MG/0.4 ML SYRINGE SC SCH (08:11)
[2018-12-13 08:45] LABS: #Basophils 0.1 thou/uL (0.0-0.2); #Eosinphils 0.4 thou/uL (0.0-0.7); #Lymphocytes 1.5 thou/uL (1.20-3.40); #Monocytes 0.8 thou/uL (0.11-0.59); #Neutrophils 6.7 thou/uL (1.40-6.50); %Basophils 0.6 % (0.0-1.0); %Eosinophils 4.6 % (0.0-10.0); %Lymphocytes 15.7 % (21.0-51.0); %Monocytes 8.4 % (0.0-10.0); %Neutrophils 70.7 % (42.0-75.0); Hemoglobin 8.8 g/dL (14.0-18.0); Mean Corpuscular HGB CONC 30.3 g/dL (32.0-36.0); Mean Corpuscular Volume 82.4 fL (78.0-98.0); Mean Platelet Volume 6.1 fL (7.4-10.4); Platelet Count 684 thou/uL (130-400); RBC Distribution Width 17.2 % (11.5-14.5); Red Blood Cell (RBC) Count 3.52 mill/uL (4.70-6.10); White Blood Cell (WBC) Count 9.5 thou/uL (4.8-10.8)
[2018-12-13 09:05] LABS: Anion Gap 11 mmol/L (10-20); BUN (Urea Nitrogen) 6 mg/dL (8.4-25.7); Calc. Creatinine Clearance 92 mL/min (70-130); Calcium 8.2 mg/dL (7.8-10.44); Carbon Dioxide 27 mmol/L (23-31); Chloride 98 mmol/L (98-107); Estimated GFR-MDRD Greater than 90; Glucose 210 mg/dL (83-110); Potassium 3.5 mmol/L (3.5-5.1); Sodium 132 mmol/L (136-145)
--- NOTE | 2018-12-13 14:43 | PRG ---
DATE OF SERVICE: 12/13/2018 SUBJECTIVE: The patient is seen and examined at the bedside. He is slow in response. He shows some significant dementia. OBJECTIVE: VITAL SIGNS: Blood pressure is 128/71, pulse is 96, respiratory rate is 18, O2 saturation is 99% on room air, temperature is 97.5, maximal temperature is 99.5. GENERAL: He tries to follow my commands, but he falls short most of the time. HEENT: His sclerae are nonicteric. Oral mucosa is slightly dry. His dentition is very poor. LUNGS: Breath sounds diminished at the both bases. HEART: S1 and S2 normal. Somewhat irregular. No S3. No S4. ABDOMEN: Soft, nontender, nondistended. EXTREMITIES: He has a significant dysfunction of his lower extremities. He is not really able to move them, and he moves his upper extremities though. SKIN: He has big sacral decubitus, which is packed and some other areas of decubiti. LABORATORY DATA: White count of 9.5, hemoglobin 8.8, hematocrit 29.0, platelet count is 684,000. Sodium of 132, potassium 3.5, chloride 98, CO2 of 27, BUN 6, creatinine 0.64, glycemia is ranging from 169 to 253, calcium 8.2. Microbiology, urine culture growing Pseudomonas, which is pansensitive to antipseudomonal including Zosyn. Two blood cultures are back negative. IMPRESSION: 1. Decubitus ulcer stage IV with infection on Zosyn. 2. Pseudomonal urinary tract infection. 3. Severe muscle deconditioning. 4. Urinary retention, which is chronic. 5. Hypertension. 6. Diabetes mellitus type 2. PLAN: Plan is to continue his antipseudomonal coverage for UTI plus broad spectrum with Zosyn for his decubitus. We are waiting for general surgeon to take a look at him and make decision whether this needs to be further debrided. We will continue Accu- Cheks a.c. and at bedtime. Continue coverage with sliding scale. Apparently, the patient was on hospice, but this has been revoked and now he is full code. Also, Wound Care Team is consulted for management of his decubiti and other skin problems. We will continue his probiotic. Job ID: [id number]
[2018-12-13] MEDS: [UNRECOGNIZED DRUG - OTHER] PO SCH (15:20)
[2018-12-13] MEDS: HumaLOG 300 UNITS/3 ML VIAL SC PRN (16:22)
[2018-12-13] MEDS: Multivitamins, Adult 10 ML, Folic Acid 1 MG, Thiamine HCl 100 MG in Dextrose 5 %-0.45 %... IV SCH (17:23)
[2018-12-14] MEDS: Vancomycin HCl 1 GM in Premix Bag 1 BAG IVPB SCH ×2 (02:22→14:56)
[2018-12-14] MEDS: HumaLOG 300 UNITS/3 ML VIAL SC PRN ×3 (05:53→17:01)
[2018-12-14] MEDS: Vancomycin HCl 25 MG/ML Oral PO SCH ×3 (05:53→17:02)
[2018-12-14 06:18] LABS: #Eosinphils 0.5 thou/uL (0.0-0.7); #Lymphocytes 1.4 thou/uL (1.20-3.40); #Monocytes 0.8 thou/uL (0.11-0.59); #Neutrophils 5.7 thou/uL (1.40-6.50); %Basophils 0.4 % (0.0-1.0); %Lymphocytes 16.6 % (21.0-51.0); %Monocytes 9.8 % (0.0-10.0); %Neutrophils 67.3 % (42.0-75.0); Hemoglobin 8.3 g/dL (14.0-18.0); Mean Corpuscular HGB CONC 29.2 g/dL (32.0-36.0); Mean Corpuscular Hemoglobin 24.4 pg (27.0-31.0); Mean Corpuscular Volume 83.4 fL (78.0-98.0); Mean Platelet Volume 6.3 fL (7.4-10.4); Platelet Count 656 thou/uL (130-400); RBC Distribution Width 17.3 % (11.5-14.5); Red Blood Cell (RBC) Count 3.41 mill/uL (4.70-6.10); White Blood Cell (WBC) Count 8.4 thou/uL (4.8-10.8)
[2018-12-14 06:39] LABS: Anion Gap 10 mmol/L (10-20); BUN (Urea Nitrogen) 5 mg/dL (8.4-25.7); Calc. Creatinine Clearance 90 mL/min (70-130); Carbon Dioxide 27 mmol/L (23-31); Chloride 100 mmol/L (98-107); Estimated GFR-MDRD Greater than 90; Glucose 257 mg/dL (83-110); Potassium 3.6 mmol/L (3.5-5.1); Sodium 133 mmol/L (136-145)
[2018-12-14] MEDS ORDERED: Dextrose 5% in Water 1,000 ML IV PRN (07:16)
[2018-12-14] MEDS ORDERED: Dextrose 50% Abboject 50 ML SYRINGE SLOW IVP PRN (07:16)
[2018-12-14] MEDS: Piperacillin/Tazobactam 4.5 GM in Sodium Chloride 0.9% 100 ML IVPB SCH ×2 (08:29→16:57)
[2018-12-14] MEDS: Enoxaparin Sodium 40 MG/0.4 ML SYRINGE SC SCH (08:34)
[2018-12-14] MEDS: glipiZIDE 10 MG TAB PO SCH ×2 (08:35→20:40)
[2018-12-14] MEDS: Potassium Chloride 20 MEQ TAB PO SCH (08:38)
[2018-12-14] MEDS: Famotidine 20 MG TAB PO SCH ×2 (08:39→20:41)
[2018-12-14] MEDS: Ferrous Sulfate 325 MG TAB PO SCH ×2 (08:39→17:02)
[2018-12-14] MEDS: Tamsulosin HCl 0.4 MG CAP PO SCH (08:39)
[2018-12-14] MEDS: Atorvastatin Calcium 20 MG TAB PO SCH (08:39)
[2018-12-14] MEDS: Saccharomyces boulardii 250 MG CAP PO SCH (08:39)
[2018-12-14] MEDS: Mirtazapine 15 MG TAB PO SCH (08:39)
[2018-12-14] MEDS: Multivit, Therapeutic 1 TAB PO SCH (08:39)
[2018-12-14] MEDS: Folic Acid 1 MG TAB PO SCH (08:39)
[2018-12-14] MEDS: traMADol HCl 50 MG TAB PO PRN (10:23)
--- NOTE | 2018-12-14 10:59 | PRG ---
DATE OF SERVICE: 12/14/2018 SUBJECTIVE: The patient is seen and examined at bedside. He seems to be more awake this morning and able to follow my commands than he was yesterday. OBJECTIVE: VITAL SIGNS: Blood pressure is 105/63, pulse is 92, temperature is 98.3, respirations 16, and O2 saturation is 99% on room air. HEENT: His head is atraumatic and normocephalic. Eyes are PERRLA. Sclerae are nonicteric. Oral mucosa is slightly dry. NECK: Supple. LUNGS: Breath sounds diminished at both bases. HEART: S1 and S2 normal. No S3. No S4. ABDOMEN: Soft and nontender. EXTREMITIES: No clubbing, cyanosis, or edema. NEUROLOGICAL: He tries to follow my commands. He is not really able to move his lower extremities, although he is able to move his toes. I think he is just bedridden for a long time and he lost his ability to walk. LABORATORY DATA: Showed white count of 8.4, hemoglobin of 8.3, hematocrit 28.4, and platelet count is 656,000. Sodium of 133, potassium 3.6, chloride 100, CO2 of 27, BUN 5, and creatinine 0.66. Glycemia is still high running between 219 and 280. Calcium is 8.0. Microbiology, urine culture still growing Pseudomonas aeruginosa colonies per mL and this is organism #2, which is most likely nonsignificant, it is a gram-negative leonela less than 5000 and Pseudomonas aeruginosa is sensitive to all anti-pseudomonal antibiotics. IMPRESSION: 1. Multiple decubitus with one prominent one in the sacral area, stage IV, status post debridement by Dr. Daniel, yesterday. 2. Pseudomonal urinary tract infection. 3. Severe muscle deconditioning. 4. Urinary retention, which is chronic. 5. Hypertension. 6. Diabetes mellitus type 2, uncontrolled. PLAN: Plan is to continue his antibiotics, change his sliding scale to aggressive. We will continue using banana bag for additional couple of days and we will continue Clemens catheter to the gravity. The case was discussed with Dr. Daniel, general surgeon, who did debridement. She thinks, he does not get adequate care at the detention and that is why his decubitus present. We will send the message to pillowcase maker and we will try to get hold of the family to discuss this issue and we will continue his DVT prophylaxis. Job ID: [id number]
[2018-12-14] MEDS: Multivitamins, Adult 10 ML, Folic Acid 1 MG, Thiamine HCl 100 MG in Dextrose 5 %-0.45 %... IV SCH (14:59)
[2018-12-14 15:24] LABS: Vancomycin, Trough 24.5 ug/mL
[2018-12-14] MEDS: Insulin Glargine 10 UNITS in Pre-Filled Syringe 1 EACH SC SCH (20:41)
[2018-12-15] MEDS: Piperacillin/Tazobactam 4.5 GM in Sodium Chloride 0.9% 100 ML IVPB SCH ×3 (00:19→15:32)
[2018-12-15] MEDS: Vancomycin HCl 25 MG/ML Oral PO SCH ×4 (00:19→17:00)
[2018-12-15] MEDS: Vancomycin HCl 750 MG in Sodium Chloride 0.9% 250 ML 250 ML IVPB SCH ×2 (02:00→12:43)
--- NOTE | 2018-12-15 08:31 | PDOC.GSPN ---
Surgery Progress Note: Subj - Subjective Narrative: Have been seeing pt w WCT past 2 days, did sharp excisional debridement at bedside x2, w multidex powder/gauze dressing changes for ongoing chemical/ mechanical debridement. Small amount of exposed bone, remaining tissues viable. Will likely be ready for VAC in next day or two. Can follow up in my clinic or outpatient [facility]. Has full thickness L buttock eschar without infection, not debrided but may require debridement in future, and multiple unstageable/ partial thickness wounds on extremities not requiring debridement. Surgery Progress Note: Obj - Vital signs Vital signs: Vital Signs - Most Recent Temp Pulse Resp BP Pulse Ox 98.2 F 89 17 109/60 97 12/15/18 07:00 12/15/18 07:00 12/15/18 07:00 12/15/18 07:00 12/15/18 07:00 Surgery Progress Note: Results - Labs Result Diagrams: 12/14/18 05:41 12/14/18 05:41 Lab results: Laboratory Results - last 24 hr 12/14/18 12/15/18 20:06 04:20 POC Glucose 121 H 109
[2018-12-15] MEDS: Saccharomyces boulardii 250 MG CAP PO SCH (08:58)
[2018-12-15] MEDS: Mirtazapine 15 MG TAB PO SCH (08:58)
[2018-12-15] MEDS: Multivit, Therapeutic 1 TAB PO SCH (08:59)
[2018-12-15] MEDS: Folic Acid 1 MG TAB PO SCH (08:59)
[2018-12-15] MEDS: Potassium Chloride 20 MEQ TAB PO SCH (08:59)
[2018-12-15] MEDS: Tamsulosin HCl 0.4 MG CAP PO SCH (08:59)
[2018-12-15] MEDS: glipiZIDE 10 MG TAB PO SCH ×2 (08:59→21:06)
[2018-12-15] MEDS: Ferrous Sulfate 325 MG TAB PO SCH ×2 (08:59→16:50)
[2018-12-15] MEDS: Famotidine 20 MG TAB PO SCH ×2 (08:59→21:05)
[2018-12-15] MEDS: Atorvastatin Calcium 20 MG TAB PO SCH (08:59)
[2018-12-15] MEDS: Enoxaparin Sodium 40 MG/0.4 ML SYRINGE SC SCH (09:00)
[2018-12-15] MEDS: Acetaminophen 325 MG TAB PO PRN ×2 (12:10→21:06)
[2018-12-15] MEDS: HumaLOG 300 UNITS/3 ML VIAL SC PRN ×2 (12:10→21:08)
[2018-12-15] MEDS: Multivitamins, Adult 10 ML, Folic Acid 1 MG, Thiamine HCl 100 MG in Dextrose 5 %-0.45 %... IV SCH (16:50)
[2018-12-15] MEDS: Insulin Glargine 10 UNITS in Pre-Filled Syringe 1 EACH SC SCH (21:07)
--- NOTE | 2018-12-15 22:16 | PDOC.HOSPP ---
- Subjective Subjective: Doing ok. He has not complaints. - Objective Vital Signs & Weight: Vital Signs (12 hours) Temp Pulse Resp BP Pulse Ox 12/15/18 19:31 98.5 F 91 16 114/52 L 95 Weight Admit Weight 173 lb 14.4 oz Weight 173 lb 14.4 oz I&O: 12/14/18 12/15/18 12/16/18 06:59 06:59 06:59 Intake Total 2635 2187.5 1750 Output Total 2125 1900 1600 Balance 510 287.5 150 Result Diagrams: 12/14/18 05:41 12/14/18 05:41 Additional Labs: Accuchecks 12/15/18 12/15/18 12/15/18 19:37 16:04 11:58 POC Glucose 214 H 148 H 189 H 12/15/18 04:20 POC Glucose 109 Hospitalist ROS - Medication Medications: Active Medications Generic Name Dose Route Start Last Admin Trade Name Freq PRN Reason Stop Dose Admin Acetaminophen 650 mg 12/11/18 00:30 12/15/18 21:06 Tylenol PO 650 mg Q4H PRN Administration Headache/Fever/Mild Pain (1-3) Atorvastatin Calcium 20 mg 12/11/18 09:00 12/15/18 08:59 Lipitor PO 20 mg DAILY EMERALD Administration Enoxaparin Sodium 40 mg 12/11/18 09:00 12/15/18 09:00 Lovenox SC 40 mg 0900 EMERALD Administration Famotidine 20 mg 12/12/18 21:00 12/15/18 21:05 Pepcid PO 20 mg BID EMERALD Administration Ferrous Sulfate 325 mg 12/12/18 17:00 12/15/18 16:50 Feosol PO 325 mg BID-WM EMERALD Administration Folic Acid 1 mg 12/13/18 09:00 12/15/18 08:59 Folvite PO 1 mg DAILY EMERALD Administration Glipizide 10 mg 12/11/18 09:00 12/15/18 21:06 Glucotrol PO 10 mg BID EMERALD Administration Piperacillin Sod/Tazobactam 100 mls @ 200 mls/hr 12/11/18 08:00 12/15/18 15: 32 Sod 4.5 gm/ Sodium Chloride IVPB 100 mls 0800,1600,2359 EMERALD Administration Insulin Glargine 10 units/ 0.1 mls @ 0 mls/hr 12/14/18 21:00 12/15/18 21:07 Miscellaneous Medication SC 0.1 mls HS EMERALD Administration Vancomycin HCl 750 mg/ Sodium 250 mls @ 250 mls/hr 12/15/18 02:00 12/15/18 12 :43 Chloride IVPB 250 mls 0200,1400 EMERALD Administration Insulin Human Lispro 0 units 12/14/18 07:16 12/15/18 21:08 Humalog SC 6 unit .AGGRESSIVE SLIDING PRN Administration Aggressive Correctional Scale Mirtazapine 15 mg 12/13/18 09:00 12/15/18 08:58 Remeron PO 15 mg DAILY EMERALD Administration Multivitamins 1 tab 12/13/18 09:00 12/15/18 08:59 Theragran PO 1 tab DAILY EMERALD Administration Potassium Chloride 40 meq 12/13/18 08:00 12/15/18 08:59 K-Dur PO 40 meq QAM-WM EMERALD Administration Saccharomyces Boulardii 250 mg 12/13/18 09:00 12/15/18 08:58 Florastor PO 250 mg DAILY EMERALD Administration Sodium Chloride 10 ml 12/11/18 09:00 12/15/18 21:07 Flush - Normal Saline IVF 10 ml Q12HR EMERALD Administration Sodium Chloride 10 ml 12/11/18 03:59 12/15/18 15:33 Flush - Normal Saline IVF 10 ml PRN PRN Administration Saline Flush Tamsulosin HCl 0.4 mg 12/11/18 09:00 12/15/18 08:59 Flomax PO 0.4 mg DAILY EMERALD Administration Tramadol HCl 50 mg 12/12/18 14:00 12/14/18 10:23 Ultram PO 50 mg Q6H PRN Administration Pain Vancomycin HCl 125 mg 12/12/18 18:00 12/15/18 17:00 First Vancomycin PO 125 mg Q6HR EMERALD Administration - Exam General Appearance: NAD, awake alert Heart: RRR, no murmur, no gallops, no rubs, normal peripheral pulses Respiratory: CTAB, no wheezes, no rales, no ronchi, normal chest expansion, no tachypnea, normal percussion Gastrointestinal: soft, non-tender, non-distended, normal bowel sounds, no palpable masses, no hepatomegaly, no splenomegaly, no bruit Extremities: no cyanosis, no clubbing, no edema Skin - other findings: Numerous decubiti Neurological - other findings: incomplete quad with some movement of UE's Psychiatric: normal affect, not oriented Hosp A/P (1) Decubitus ulcer, stage 4 with infection Code(s): L89.94 - PRESSURE ULCER OF UNSPECIFIED SITE, STAGE 4; L08.9 - LOCAL INFECTION OF THE SKIN AND SUBCUTANEOUS TISSUE, UNSP Status: Acute (2) UTI (urinary tract infection) Status: Acute (3) Severe muscle deconditioning Code(s): R29.898 - OT SYMPTOMS AND SIGNS INVOLVING THE MUSCULOSKELETAL SYSTEM Status: Chronic (4) Urinary retention Code(s): R33.9 - RETENTION OF URINE, UNSPECIFIED Status: Chronic (5) HTN (hypertension) Code(s): I10 - ESSENTIAL (PRIMARY) HYPERTENSION Status: Acute (6) DM II (diabetes mellitus, type II), controlled Code(s): E11.9 - TYPE 2 DIABETES MELLITUS WITHOUT COMPLICATIONS Status: Chronic - Plan Likely UTI or infected decub or both. Surgery debrided sacral wound. Large eschar on buttock that will eventually need some intervention. Cont. IV abx. Covering Pseudomonas. Glucose monitoring. Needs new placement. CM working on it.
[2018-12-16] MEDS: Vancomycin HCl 25 MG/ML Oral PO SCH ×5 (00:34→23:32)
[2018-12-16] MEDS: Piperacillin/Tazobactam 4.5 GM in Sodium Chloride 0.9% 100 ML IVPB SCH ×4 (00:34→23:32)
[2018-12-16] MEDS: Vancomycin HCl 750 MG in Sodium Chloride 0.9% 250 ML 250 ML IVPB SCH (00:55)
[2018-12-16] MEDS: HumaLOG 300 UNITS/3 ML VIAL SC PRN ×3 (05:40→21:09)
--- NOTE | 2018-12-16 08:29 | CON ---
DATE OF CONSULTATION: 12/13/2018 HISTORY OF PRESENT ILLNESS: Mr. Orr is an 88-year-old man known to me from previous admissions with multiple medical issues and severe debilitation. He is essentially bed bound and a care home patient. He presented with an infected decubitus ulcer, which was debrided at the time of his last admission. When I last saw him, he had a VAC dressing in place and that is clean and granulating. He was readmitted with possible sepsis attributed either to worsening sacral decubitus ulcer or UTI. The patient is unable to give any significant history and no family is available. He denies any pain in the sacral area. He was noted on admission to have multiple new decubitus ulcers and sores, which were not present on last admission. PAST MEDICAL HISTORY: High blood pressure, diabetes uncontrolled on admission, stroke, and dementia. PAST SURGICAL HISTORY: Unknown of debridement of sacral decubitus ulcer on admission in August. FAMILY HISTORY: Unknown. SOCIAL HISTORY: The patient's power of attorney at law, . He is a care home patient with very limited mobility, although he can help turn . ALLERGIES: HE HAS NO KNOWN DRUG ALLERGIES. OUTPATIENT MEDICATIONS: The patient is unable to confer medications with me. He is reported to be taking atorvastatin, glipizide, tamsulosin, metroprolol, and Janumet. Inpatient medications include: 1. Atorvastatin. 2. Lovenox. 3. Pepcid. 4. Iron. 5. Folate. 6. Glipizide. 7. Sliding scale . 8. Glargine. 9. Remeron. 10. Multivitamin. 11. Zosyn. 12. Potassium Chloride. 13. Florastor. 14. Flomax. 15. Vancomycin. 16. . LABORATORY DATA: White count was elevated on admission at 13.2, hematocrit 33.9 to his baseline of 8, platelets 640. He had a left shift . Electrolytes are unremarkable except for a slightly low sodium. Urine on admission showed leukocyte esterase, red cells, white cells, , greater than 1000 glucose, culture is growing 75,000 to 100,000 . PHYSICAL EXAMINATION: VITAL SIGNS: The patient has been afebrile, heart rate 80s, and blood pressure in the low normal range. GENERAL: Reveals a frail elderly man, in no acute distress, not flushed or toxic in appearance. He is not jaundiced or icteric. He does answer simple questions, although he is unable to give any significant history and he is able to follow commands. HEENT: Unremarkable. NECK: Supple without lymphadenopathy. HEART: Regular in its rate and rhythm with systolic murmur. No rubs or gallops are appreciated. He does have some bibasilar crackles. ABDOMEN: Soft, nontender, and nondistended. EXTREMITIES: Warm and well perfused without edema. He has full ulcerations, abrasions on bilateral lower extremities . His sacral decubitus ulcer is larger than when I last saw him and has necrotic and subcutaneous tissues as well as bone fragment wound. The patient had photo documentation of the decubitus ulcer and when I saw it on actually improved somewhat due to Multidex powder and mechanical debridement with dressing change. I sharply excised the necrotic skin, subcutaneous tissue, and muscle at the bedside which patient tolerated well. . Multidex powder and gauze reapplied. The following day when I saw the patient the wound had further improved in appearance, only minimal debridement of subcutaneous tissue was required to but I do not plan any additional sharp excisional debridement. I think that after another day or two of be discharged with this. He is very unlikely to ever heal this with appropriate offloading and local wound should be able to stabilize the wound and prevent further deterioration. I do not believe that his wound was the cause of his possible sepsis. He also has a full-thickness eschar on his left buttock, but no evidence of infection, so no debridement of this was carried out. This will likely lift off underlying tissues, I feel at which point from a surgical standpoint, the patient is ready for discharge back to . He can follow up either in clinic week or two or with the outpatient . Job ID: [id number]
[2018-12-16] MEDS: Tamsulosin HCl 0.4 MG CAP PO SCH (09:07)
[2018-12-16] MEDS: Atorvastatin Calcium 20 MG TAB PO SCH (09:07)
[2018-12-16] MEDS: Folic Acid 1 MG TAB PO SCH (09:07)
[2018-12-16] MEDS: Famotidine 20 MG TAB PO SCH ×2 (09:07→21:05)
[2018-12-16] MEDS: Ferrous Sulfate 325 MG TAB PO SCH ×2 (09:07→16:53)
[2018-12-16] MEDS: Mirtazapine 15 MG TAB PO SCH (09:07)
[2018-12-16] MEDS: Saccharomyces boulardii 250 MG CAP PO SCH (09:07)
[2018-12-16] MEDS: Potassium Chloride 20 MEQ TAB PO SCH (09:07)
[2018-12-16] MEDS: glipiZIDE 10 MG TAB PO SCH ×2 (09:07→21:06)
[2018-12-16] MEDS: Multivit, Therapeutic 1 TAB PO SCH (09:07)
[2018-12-16] MEDS: Enoxaparin Sodium 40 MG/0.4 ML SYRINGE SC SCH (09:08)
[2018-12-16] MEDS: traMADol HCl 50 MG TAB PO PRN ×2 (13:44→21:04)
[2018-12-16 13:48] LABS: Vancomycin, Trough 26.7 ug/mL
[2018-12-16] MEDS ORDERED: Vancomycin HCl 1 GM in Premix Bag 1 BAG IVPB SCH (14:00)
--- NOTE | 2018-12-16 18:03 | PDOC.HOSPP ---
- Subjective Subjective: Doing well. No complaints. NO problems reported. - Objective Vital Signs & Weight: Vital Signs (12 hours) Temp Pulse Resp BP Pulse Ox 12/16/18 08:00 98.4 F 83 17 118/70 99 12/16/18 07:36 96 Weight Admit Weight 173 lb 14.4 oz Weight 173 lb 14.4 oz I&O: 12/15/18 12/16/18 12/17/18 06:59 06:59 06:59 Intake Total 2187.5 3050 Output Total 1900 2900 Balance 287.5 150 Result Diagrams: 12/14/18 05:41 12/14/18 05:41 Additional Labs: Accuchecks 12/16/18 12/16/18 12/16/18 16:21 12:10 04:24 POC Glucose 195 H 105 219 H 12/15/18 19:37 POC Glucose 214 H Hospitalist ROS - Medication Medications: Active Medications Generic Name Dose Route Start Last Admin Trade Name Freq PRN Reason Stop Dose Admin Acetaminophen 650 mg 12/11/18 00:30 12/15/18 21:06 Tylenol PO 650 mg Q4H PRN Administration Headache/Fever/Mild Pain (1-3) Atorvastatin Calcium 20 mg 12/11/18 09:00 12/16/18 09:07 Lipitor PO 20 mg DAILY EMERALD Administration Enoxaparin Sodium 40 mg 12/11/18 09:00 12/16/18 09:08 Lovenox SC 40 mg 0900 EMERALD Administration Famotidine 20 mg 12/12/18 21:00 12/16/18 09:07 Pepcid PO 20 mg BID EMERALD Administration Ferrous Sulfate 325 mg 12/12/18 17:00 12/16/18 16:53 Feosol PO 325 mg BID-WM EMERALD Administration Folic Acid 1 mg 12/13/18 09:00 12/16/18 09:07 Folvite PO 1 mg DAILY EMERALD Administration Glipizide 10 mg 12/11/18 09:00 12/16/18 09:07 Glucotrol PO 10 mg BID EMERALD Administration Piperacillin Sod/Tazobactam 100 mls @ 200 mls/hr 12/11/18 08:00 12/16/18 16: 52 Sod 4.5 gm/ Sodium Chloride IVPB 100 mls 0800,1600,2359 EMERALD Administration Insulin Glargine 10 units/ 0.1 mls @ 0 mls/hr 12/14/18 21:00 12/15/18 21:07 Miscellaneous Medication SC 0.1 mls HS EMERALD Administration Insulin Human Lispro 0 units 12/14/18 07:16 12/16/18 17:14 Humalog SC 3 unit .AGGRESSIVE SLIDING PRN Administration Aggressive Correctional Scale Mirtazapine 15 mg 12/13/18 09:00 12/16/18 09:07 Remeron PO 15 mg DAILY EMERALD Administration Multivitamins 1 tab 12/13/18 09:00 12/16/18 09:07 Theragran PO 1 tab DAILY EMERALD Administration Potassium Chloride 40 meq 12/13/18 08:00 12/16/18 09:07 K-Dur PO Not Given QAM-WM EMERALD Saccharomyces Boulardii 250 mg 12/13/18 09:00 12/16/18 09:07 Florastor PO 250 mg DAILY EMERALD Administration Sodium Chloride 10 ml 12/11/18 09:00 12/16/18 09:08 Flush - Normal Saline IVF 10 ml Q12HR EMERALD Administration Sodium Chloride 10 ml 12/11/18 03:59 12/15/18 15:33 Flush - Normal Saline IVF 10 ml PRN PRN Administration Saline Flush Tamsulosin HCl 0.4 mg 12/11/18 09:00 12/16/18 09:07 Flomax PO 0.4 mg DAILY EMERALD Administration Tramadol HCl 50 mg 12/12/18 14:00 12/16/18 13:44 Ultram PO 50 mg Q6H PRN Administration Pain Vancomycin HCl 125 mg 12/12/18 18:00 12/16/18 17:14 First Vancomycin PO 125 mg Q6HR EMERALD Administration - Exam General Appearance: NAD, awake alert Heart: RRR, no murmur, no gallops, no rubs, normal peripheral pulses Respiratory: CTAB, no wheezes, no rales, no ronchi, normal chest expansion, no tachypnea, normal percussion Gastrointestinal: soft, non-tender, non-distended, normal bowel sounds, no palpable masses, no hepatomegaly, no splenomegaly, no bruit Neurological - other findings: Incomplete quad. Psychiatric: normal affect, not oriented Hosp A/P (1) Decubitus ulcer, stage 4 with infection Code(s): L89.94 - PRESSURE ULCER OF UNSPECIFIED SITE, STAGE 4; L08.9 - LOCAL INFECTION OF THE SKIN AND SUBCUTANEOUS TISSUE, UNSP Status: Acute (2) UTI (urinary tract infection) Status: Acute (3) Severe muscle deconditioning Code(s): R29.898 - OTH SYMPTOMS AND SIGNS INVOLVING THE MUSCULOSKELETAL SYSTEM Status: Chronic (4) Urinary retention Code(s): R33.9 - RETENTION OF URINE, UNSPECIFIED Status: Chronic (5) HTN (hypertension) Code(s): I10 - ESSENTIAL (PRIMARY) HYPERTENSION Status: Acute (6) DM II (diabetes mellitus, type II), controlled Code(s): E11.9 - TYPE 2 DIABETES MELLITUS WITHOUT COMPLICATIONS Status: Chronic - Plan Likely UTI or infected decub or both. Surgery debrided sacral wound. Large eschar on buttock that will eventually need some intervention. Cont. IV abx. Covering Pseudomonas. Glucose monitoring. Needs new placement. CM working on it. Medically stable for DC when placement arranged. Change to po levaquin at discharge.
[2018-12-16] MEDS: Acetaminophen 325 MG TAB PO PRN (21:05)
[2018-12-16] MEDS: Insulin Glargine 10 UNITS in Pre-Filled Syringe 1 EACH SC SCH (21:06)
[2018-12-17] MEDS: Vancomycin HCl 25 MG/ML Oral PO SCH ×2 (05:06→13:28)
[2018-12-17] MEDS: glipiZIDE 10 MG TAB PO SCH ×2 (08:48→20:52)
[2018-12-17] MEDS: Saccharomyces boulardii 250 MG CAP PO SCH (08:48)
[2018-12-17] MEDS: Ferrous Sulfate 325 MG TAB PO SCH ×2 (08:49→16:06)
[2018-12-17] MEDS: Famotidine 20 MG TAB PO SCH ×2 (08:49→20:52)
[2018-12-17] MEDS: Potassium Chloride 20 MEQ TAB PO SCH (08:49)
[2018-12-17] MEDS: Multivit, Therapeutic 1 TAB PO SCH (08:49)
[2018-12-17] MEDS: Piperacillin/Tazobactam 4.5 GM in Sodium Chloride 0.9% 100 ML IVPB SCH ×2 (08:50→16:05)
[2018-12-17] MEDS: Mirtazapine 15 MG TAB PO SCH (08:50)
[2018-12-17] MEDS: Tamsulosin HCl 0.4 MG CAP PO SCH (08:50)
[2018-12-17] MEDS: Atorvastatin Calcium 20 MG TAB PO SCH (08:50)
[2018-12-17] MEDS: Folic Acid 1 MG TAB PO SCH (08:50)
[2018-12-17] MEDS: Enoxaparin Sodium 40 MG/0.4 ML SYRINGE SC SCH (08:50)
[2018-12-17] MEDS: traMADol HCl 50 MG TAB PO PRN (10:36)
[2018-12-17 13:19] LABS: Vancomycin, Trough 15.6 ug/mL
[2018-12-17] MEDS: Vancomycin HCl 500 MG in Sodium Chloride 0.9% 100 ML IVPB SCH (14:52)
--- NOTE | 2018-12-17 20:38 | PDOC.HOSPP ---
- Subjective Subjective: No complaints. Says he is ok. Confused. - Objective Vital Signs & Weight: Vital Signs (12 hours) Temp Pulse Resp BP Pulse Ox 12/17/18 15:54 97.4 F L 83 18 130/70 100 12/17/18 11:58 97.5 F L 84 18 113/66 97 Weight Admit Weight 173 lb 14.4 oz Weight 173 lb 14.4 oz I&O: 12/16/18 12/17/18 12/18/18 06:59 06:59 06:59 Intake Total 3050 1480 Output Total 2900 1350 375 Balance 150 130 -375 Result Diagrams: 12/14/18 05:41 12/14/18 05:41 Additional Labs: Accuchecks 12/17/18 12/17/18 12/17/18 16:00 11:23 04:59 POC Glucose 104 83 109 12/16/18 20:06 POC Glucose 251 H Hospitalist ROS - Medication Medications: Active Medications Generic Name Dose Route Start Last Admin Trade Name Freq PRN Reason Stop Dose Admin Acetaminophen 650 mg 12/11/18 00:30 12/16/18 21:05 Tylenol PO 650 mg Q4H PRN Administration Headache/Fever/Mild Pain (1-3) Atorvastatin Calcium 20 mg 12/11/18 09:00 12/17/18 08:50 Lipitor PO 20 mg DAILY EMERALD Administration Enoxaparin Sodium 40 mg 12/11/18 09:00 12/17/18 08:50 Lovenox SC 40 mg 0900 EMERALD Administration Famotidine 20 mg 12/12/18 21:00 12/17/18 08:49 Pepcid PO 20 mg BID EMERALD Administration Ferrous Sulfate 325 mg 12/12/18 17:00 12/17/18 16:06 Feosol PO 325 mg BID-WM EMERALD Administration Folic Acid 1 mg 12/13/18 09:00 12/17/18 08:50 Folvite PO 1 mg DAILY EMERALD Administration Glipizide 10 mg 12/11/18 09:00 12/17/18 08:48 Glucotrol PO 10 mg BID EMERALD Administration Piperacillin Sod/Tazobactam 100 mls @ 200 mls/hr 12/11/18 08:00 12/17/18 16: 05 Sod 4.5 gm/ Sodium Chloride IVPB 100 mls 0800,1600,2359 EMERALD Administration Insulin Glargine 10 units/ 0.1 mls @ 0 mls/hr 12/14/18 21:00 12/16/18 21:06 Miscellaneous Medication SC 0.1 mls HS EMERALD Administration Vancomycin HCl 500 mg/ Sodium 100 mls @ 100 mls/hr 12/17/18 14:00 12/17/18 14 :52 Chloride IVPB 100 mls 0200,1400 EMERALD Administration Insulin Human Lispro 0 units 12/14/18 07:16 12/16/18 21:09 Humalog SC 9 unit .AGGRESSIVE SLIDING PRN Administration Aggressive Correctional Scale Mirtazapine 15 mg 12/13/18 09:00 12/17/18 08:50 Remeron PO 15 mg DAILY EMERALD Administration Multivitamins 1 tab 12/13/18 09:00 12/17/18 08:49 Theragran PO 1 tab DAILY EMERALD Administration Potassium Chloride 40 meq 12/13/18 08:00 12/17/18 08:49 K-Dur PO 40 meq QAM-WM EMERALD Administration Saccharomyces Boulardii 250 mg 12/13/18 09:00 12/17/18 08:48 Florastor PO 250 mg DAILY EMERALD Administration Sodium Chloride 10 ml 12/11/18 09:00 12/17/18 08:51 Flush - Normal Saline IVF 10 ml Q12HR EMERALD Administration Sodium Chloride 10 ml 12/11/18 03:59 12/15/18 15:33 Flush - Normal Saline IVF 10 ml PRN PRN Administration Saline Flush Tamsulosin HCl 0.4 mg 12/11/18 09:00 12/17/18 08:50 Flomax PO 0.4 mg DAILY EMERALD Administration Tramadol HCl 50 mg 12/12/18 14:00 12/17/18 10:36 Ultram PO 50 mg Q6H PRN Administration Pain - Exam General Appearance: NAD, awake alert Heart: RRR, no murmur, no gallops, no rubs, normal peripheral pulses Respiratory: CTAB, no wheezes, no rales, no ronchi, normal chest expansion, no tachypnea, normal percussion Gastrointestinal: soft, non-tender, non-distended, normal bowel sounds, no palpable masses, no hepatomegaly, no splenomegaly, no bruit Musculoskeletal - other findings: Incomplete quad. Moves arms a little. Psychiatric: not oriented Psychiatric - other findings: Pleasantly confused. Hosp A/P (1) Decubitus ulcer, stage 4 with infection Code(s): L89.94 - PRESSURE ULCER OF UNSPECIFIED SITE, STAGE 4; L08.9 - LOCAL INFECTION OF THE SKIN AND SUBCUTANEOUS TISSUE, UNSP Status: Acute (2) UTI (urinary tract infection) Status: Acute (3) Severe muscle deconditioning Code(s): R29.898 - OTH SYMPTOMS AND SIGNS INVOLVING THE MUSCULOSKELETAL SYSTEM Status: Chronic (4) Urinary retention Code(s): R33.9 - RETENTION OF URINE, UNSPECIFIED Status: Chronic (5) HTN (hypertension) Code(s): I10 - ESSENTIAL (PRIMARY) HYPERTENSION Status: Acute (6) DM II (diabetes mellitus, type II), controlled Code(s): E11.9 - TYPE 2 DIABETES MELLITUS WITHOUT COMPLICATIONS Status: Chronic - Plan . Surgery debrided sacral wound. Large eschar on buttock that will eventually need some intervention. Cont. IV abx. Covering Pseudomonas. Glucose monitoring. Needs new placement. CM working on it. Medically stable for DC when placement arranged. Change to po levaquin at discharge. Was on po vancomycin for C diff and on Vanc. I can find no evidence for this. There is no mention in the ED record or H and P and there are not C diff tests here. He is not showing any symptoms of this. Isolation and Vanc discontinued.
[2018-12-17] MEDS: Insulin Glargine 10 UNITS in Pre-Filled Syringe 1 EACH SC SCH (20:52)
[2018-12-18] MEDS: Piperacillin/Tazobactam 4.5 GM in Sodium Chloride 0.9% 100 ML IVPB SCH ×3 (00:04→18:27)
[2018-12-18] MEDS: Vancomycin HCl 500 MG in Sodium Chloride 0.9% 100 ML IVPB SCH ×2 (02:41→15:30)
[2018-12-18] MEDS: Folic Acid 1 MG TAB PO SCH (09:37)
[2018-12-18] MEDS: Tamsulosin HCl 0.4 MG CAP PO SCH (09:37)
[2018-12-18] MEDS: Multivit, Therapeutic 1 TAB PO SCH (09:37)
[2018-12-18] MEDS: Mirtazapine 15 MG TAB PO SCH (09:37)
[2018-12-18] MEDS: Potassium Chloride 20 MEQ TAB PO SCH (09:37)
[2018-12-18] MEDS: Atorvastatin Calcium 20 MG TAB PO SCH (09:38)
[2018-12-18] MEDS: Famotidine 20 MG TAB PO SCH ×2 (09:38→20:37)
[2018-12-18] MEDS: Saccharomyces boulardii 250 MG CAP PO SCH (09:38)
[2018-12-18] MEDS: Ferrous Sulfate 325 MG TAB PO SCH ×2 (09:38→18:29)
[2018-12-18] MEDS: glipiZIDE 10 MG TAB PO SCH ×2 (09:38→20:37)
[2018-12-18] MEDS: Enoxaparin Sodium 40 MG/0.4 ML SYRINGE SC SCH (09:39)
--- NOTE | 2018-12-18 15:34 | PRG ---
DATE OF SERVICE: 12/18/2018 SUBJECTIVE: The patient is seen and examined at the bedside. He does not have much complaints to offer. He does not complain about the pain during my visit. OBJECTIVE: VITAL SIGNS: Blood pressure is 155/70, pulse is 58, respirations 16, O2 saturation is 97% on room air, and his temperature is 98.4. He has good urine output. GENERAL: He follows my commands. HEENT: His pupils are responding to light properly. Sclerae are nonicteric. Conjunctivae are palish. Oral mucosa is moist. NECK: Supple. LUNGS: Clear. HEART: S1, S2, somewhat irregular. No S3. No S4. ABDOMEN: Soft, nontender. EXTREMITIES: He has 1+ peripheral edema on both lower extremities. NEUROLOGICAL EXAMINATION: His both lower extremities are very weak. He is still able to move his toes, but not much more than that. IMPRESSION: 1. Decubitus ulcer stage IV with infection. 2. Urinary tract infection. 3. Urinary retention. 4. Hypertension. 5. Diabetes mellitus type 2. 6. Severe muscle deconditioning. PLAN: We are in the process of looking for new placement. He is ready to be discharged any time as soon as this is arranged. I will stop his vancomycin. We will continue just Zosyn. Continue insulin, long-acting and short-acting with sliding scale, and continue probiotics. Job ID: [id number]
[2018-12-18] MEDS: Insulin Glargine 10 UNITS in Pre-Filled Syringe 1 EACH SC SCH (20:37)
[2018-12-19] MEDS: Piperacillin/Tazobactam 4.5 GM in Sodium Chloride 0.9% 100 ML IVPB SCH ×3 (00:02→16:51)
[2018-12-19] MEDS: Vancomycin HCl 500 MG in Sodium Chloride 0.9% 100 ML IVPB SCH ×2 (01:54→14:32)
[2018-12-19] MEDS: Ferrous Sulfate 325 MG TAB PO SCH ×2 (08:57→16:52)
[2018-12-19] MEDS: Potassium Chloride 20 MEQ TAB PO SCH (08:58)
[2018-12-19] MEDS: glipiZIDE 10 MG TAB PO SCH ×2 (08:58→21:13)
[2018-12-19] MEDS: Tamsulosin HCl 0.4 MG CAP PO SCH (08:58)
[2018-12-19] MEDS: Saccharomyces boulardii 250 MG CAP PO SCH (08:58)
[2018-12-19] MEDS: Atorvastatin Calcium 20 MG TAB PO SCH (08:58)
[2018-12-19] MEDS: Mirtazapine 15 MG TAB PO SCH (08:58)
[2018-12-19] MEDS: Enoxaparin Sodium 40 MG/0.4 ML SYRINGE SC SCH (08:59)
[2018-12-19] MEDS: Folic Acid 1 MG TAB PO SCH (08:59)
[2018-12-19] MEDS: Famotidine 20 MG TAB PO SCH ×2 (08:59→21:13)
[2018-12-19] MEDS: Multivit, Therapeutic 1 TAB PO SCH (08:59)
--- NOTE | 2018-12-19 12:10 | PRG ---
DATE OF SERVICE: 12/19/2018 SUBJECTIVE: The patient is seen and examined at bedside. He does not have much complaints to offer. OBJECTIVE: VITAL SIGNS: Blood pressure is 110/66, pulse is 87, temperature is 97.9, maximal temperature is 99, respiratory rate is 18, and O2 saturation is 95% on room air. GENERAL: He is able to answer my simple questions, but that is all we can get from this patient. HEENT: His pupils are responding to light properly. Sclerae are nonicteric. Oral mucosa is moist. NECK: Supple. LUNGS: Breath sounds diminished at both bases. HEART: S1 and S2 normal. No S3. No S4. ABDOMEN: Soft, nontender, and nondistended. EXTREMITIES: 1+ peripheral edema, similar bilaterally on both lower extremities. NEUROLOGIC: He tries to follow my commands. He moves his upper extremities, but his function of both lower extremities is significantly diminished. There is significant weakness, probably 2 to 3/5 in both lower extremities. The wound VAC is in place and the sacral decubitus is covered with dressing. LABORATORY DATA: Glucose is ranging from 105 to 188. Microbiology, nothing new. IMPRESSION: 1. Stage IV sacral decubitus, infected. 2. Urinary tract infection. 3. Urinary retention. Clemens catheter in. 4. Hypertension. 5. Diabetes mellitus type 2, controlled. 6. Severe muscle deconditioning. PLAN: The onsite case manager is looking for a new place for this patient to leave, and at this point, he is to continue on his insulin at the time of finalization of the arrangement. He needs to be switched to oral antibiotic. Also, we will continue his probiotics. Job ID: [id number]
[2018-12-19 13:00] LABS: #Basophils 0.1 thou/uL (0.0-0.2); #Eosinphils 0.1 thou/uL (0.0-0.7); #Lymphocytes 1.7 thou/uL (1.20-3.40); #Monocytes 0.6 thou/uL (0.11-0.59); #Neutrophils 7.6 thou/uL (1.40-6.50); %Basophils 0.8 % (0.0-1.0); %Eosinophils 1.3 % (0.0-10.0); %Lymphocytes 17.2 % (21.0-51.0); %Monocytes 5.4 % (0.0-10.0); %Neutrophils 75.3 % (42.0-75.0); Hemoglobin 9.7 g/dL (14.0-18.0); Mean Corpuscular HGB CONC 30.1 g/dL (32.0-36.0); Mean Platelet Volume 6.1 fL (7.4-10.4); Platelet Count 522 thou/uL (130-400); RBC Distribution Width 16.9 % (11.5-14.5); Red Blood Cell (RBC) Count 3.86 mill/uL (4.70-6.10); White Blood Cell (WBC) Count 10.1 thou/uL (4.8-10.8)
[2018-12-19 13:18] LABS: Vancomycin, Trough 16.8 ug/mL
[2018-12-19 13:25] LABS: Anion Gap 9 mmol/L (10-20); BUN (Urea Nitrogen) 6 mg/dL (8.4-25.7); Calc. Creatinine Clearance 92 mL/min (70-130); Calcium 8.4 mg/dL (7.8-10.44); Carbon Dioxide 24 mmol/L (23-31); Chloride 107 mmol/L (98-107); Estimated GFR-MDRD Greater than 90; Glucose 133 mg/dL (83-110); Potassium 4.3 mmol/L (3.5-5.1); Sodium 136 mmol/L (136-145)
[2018-12-19] MEDS: HumaLOG 300 UNITS/3 ML VIAL SC PRN (16:58)
[2018-12-19] MEDS: Insulin Glargine 10 UNITS in Pre-Filled Syringe 1 EACH SC SCH (21:13)
[2018-12-20] MEDS: Piperacillin/Tazobactam 4.5 GM in Sodium Chloride 0.9% 100 ML IVPB SCH ×3 (00:44→15:50)
[2018-12-20] MEDS: Vancomycin HCl 500 MG in Sodium Chloride 0.9% 100 ML IVPB SCH ×2 (01:41→14:41)
[2018-12-20] MEDS: glipiZIDE 10 MG TAB PO SCH ×2 (09:05→20:41)
[2018-12-20] MEDS: Potassium Chloride 20 MEQ TAB PO SCH (09:05)
[2018-12-20] MEDS: Atorvastatin Calcium 20 MG TAB PO SCH (09:06)
[2018-12-20] MEDS: Ferrous Sulfate 325 MG TAB PO SCH ×2 (09:06→17:15)
[2018-12-20] MEDS: Saccharomyces boulardii 250 MG CAP PO SCH (09:06)
[2018-12-20] MEDS: Tamsulosin HCl 0.4 MG CAP PO SCH (09:07)
[2018-12-20] MEDS: Mirtazapine 15 MG TAB PO SCH (09:07)
[2018-12-20] MEDS: Folic Acid 1 MG TAB PO SCH (09:07)
[2018-12-20] MEDS: Enoxaparin Sodium 40 MG/0.4 ML SYRINGE SC SCH (09:07)
[2018-12-20] MEDS: Multivit, Therapeutic 1 TAB PO SCH (09:07)
[2018-12-20] MEDS: Famotidine 20 MG TAB PO SCH ×2 (09:07→20:40)
--- NOTE | 2018-12-20 11:13 | PDOC.HOSPP ---
- Subjective Encounter Date: 12/20/18 Encounter Time: 09:00 Subjective: Patient seen and examined. No new complaints. No overnight events - Objective Vital Signs & Weight: Vital Signs (12 hours) Temp Pulse Resp BP Pulse Ox 12/20/18 09:00 96 12/20/18 07:47 98.2 F 89 20 128/71 96 Weight Admit Weight 173 lb 14.4 oz Weight 173 lb 14.4 oz I&O: 12/19/18 12/20/18 12/21/18 06:59 06:59 06:59 Intake Total 980 2200 Output Total 1200 2600 Balance -220 -400 Result Diagrams: 12/19/18 12:46 12/19/18 12:46 Additional Labs: Accuchecks 12/20/18 12/20/18 12/19/18 06:04 04:46 19:54 POC Glucose 96 66 L 166 H 12/19/18 12/19/18 15:45 12:14 POC Glucose 167 H 137 H Hospitalist ROS - Review of Systems Eyes: denies: pain, vision change, conjunctivae inflammation, eyelid inflammation, redness, other ENT: denies: ear pain, ear discharge, nose pain, nose discharge, nose congestion , mouth pain, mouth swelling, throat pain, throat swelling, other Respiratory: denies: cough, dry, shortness of breath, hemoptysis, SOB with excertion, pleuritic pain, sputum, wheezing, other Cardiovascular: denies: chest pain, palpitations, orthopnea, paroxysmal noc. dyspnea, edema, light headedness, other Gastrointestinal: denies: nausea, vomiting, abdominal pain, diarrhea, constipation, melena, hematochezia, other Genitourinary: denies: dysuria, frequency, incontinence, hematuria, retention, other Musculoskeletal: denies: neck pain, shoulder pain, arm pain, back pain, hand pain, leg pain, foot pain, other Skin: denies: rash, lesions, katie, bruising, other - Medication Medications: Active Medications Generic Name Dose Route Start Last Admin Trade Name Freq PRN Reason Stop Dose Admin Acetaminophen 650 mg 12/11/18 00:30 12/16/18 21:05 Tylenol PO 650 mg Q4H PRN Administration Headache/Fever/Mild Pain (1-3) Atorvastatin Calcium 20 mg 12/11/18 09:00 12/20/18 09:06 Lipitor PO 20 mg DAILY EMERALD Administration Enoxaparin Sodium 40 mg 12/11/18 09:00 12/20/18 09:07 Lovenox SC 40 mg 0900 EMERALD Administration Famotidine 20 mg 12/12/18 21:00 12/20/18 09:07 Pepcid PO 20 mg BID EMERALD Administration Ferrous Sulfate 325 mg 12/12/18 17:00 12/20/18 09:06 Feosol PO 325 mg BID-WM EMERALD Administration Folic Acid 1 mg 12/13/18 09:00 12/20/18 09:07 Folvite PO 1 mg DAILY EMERLAD Administration Glipizide 10 mg 12/11/18 09:00 12/20/18 09:05 Glucotrol PO 10 mg BID EMERALD Administration Piperacillin Sod/Tazobactam 100 mls @ 200 mls/hr 12/11/18 08:00 12/20/18 09: 10 Sod 4.5 gm/ Sodium Chloride IVPB 100 mls 0800,1600,2359 EMERALD Administration Insulin Glargine 10 units/ 0.1 mls @ 0 mls/hr 12/14/18 21:00 12/19/18 21:13 Miscellaneous Medication SC 0.1 mls HS EMERALD Administration Vancomycin HCl 500 mg/ Sodium 100 mls @ 100 mls/hr 12/17/18 14:00 12/20/18 01 :41 Chloride IVPB 100 mls 0200,1400 EMERALD Administration Insulin Human Lispro 0 units 12/14/18 07:16 12/19/18 16:58 Humalog SC 3 unit .AGGRESSIVE SLIDING PRN Administration Aggressive Correctional Scale Mirtazapine 15 mg 12/13/18 09:00 12/20/18 09:07 Remeron PO 15 mg DAILY EMERALD Administration Multivitamins 1 tab 12/13/18 09:00 12/20/18 09:07 Theragran PO 1 tab DAILY EMERALD Administration Potassium Chloride 40 meq 12/13/18 08:00 12/20/18 09:05 K-Dur PO 40 meq QAM-WM EMERALD Administration Saccharomyces Boulardii 250 mg 12/13/18 09:00 12/20/18 09:06 Florastor PO 250 mg DAILY EMERALD Administration Sodium Chloride 10 ml 12/11/18 09:00 12/20/18 09:16 Flush - Normal Saline IVF 10 ml Q12HR EMERALD Administration Sodium Chloride 10 ml 12/11/18 03:59 12/15/18 15:33 Flush - Normal Saline IVF 10 ml PRN PRN Administration Saline Flush Tamsulosin HCl 0.4 mg 12/11/18 09:00 12/20/18 09:07 Flomax PO 0.4 mg DAILY EMERALD Administration Tramadol HCl 50 mg 12/12/18 14:00 12/17/18 10:36 Ultram PO 50 mg Q6H PRN Administration Pain - Exam General Appearance: NAD, awake alert Eye: PERRL, anicteric sclera ENT: normocephalic atraumatic, no oropharyngeal lesions Neck: supple, symmetric, no JVD Heart: RRR, no murmur, no gallops Respiratory: CTAB, no wheezes, no rales Gastrointestinal: soft, non-tender, non-distended, normal bowel sounds Extremities: no cyanosis, no clubbing, no edema Extremities - other findings: felix+, wound vac in place Skin: normal turgor, no lesions Neurological: cranial nerve grossly intact Musculoskeletal: normal tone, normal strength Psychiatric: normal affect, normal behavior Hosp A/P (1) UTI (urinary tract infection) Status: Acute Qualifiers: Urinary tract infection type: catheter-associated UTI (2) Decubitus ulcer, stage 4 with infection Code(s): L89.94 - PRESSURE ULCER OF UNSPECIFIED SITE, STAGE 4; L08.9 - LOCAL INFECTION OF THE SKIN AND SUBCUTANEOUS TISSUE, UNSP Status: Acute (3) HTN (hypertension) Code(s): I10 - ESSENTIAL (PRIMARY) HYPERTENSION Status: Chronic (4) DM II (diabetes mellitus, type II), controlled Code(s): E11.9 - TYPE 2 DIABETES MELLITUS WITHOUT COMPLICATIONS Status: Chronic (5) Iron deficiency anemia Code(s): D50.9 - IRON DEFICIENCY ANEMIA, UNSPECIFIED Status: Chronic (6) Severe muscle deconditioning Code(s): R29.898 - OTH SYMPTOMS AND SIGNS INVOLVING THE MUSCULOSKELETAL SYSTEM Status: Chronic (7) Urinary retention Code(s): R33.9 - RETENTION OF URINE, UNSPECIFIED Status: Chronic - Plan old records reviewed/req, felix catheter, continue antibiotics, PT/OT, manager social continue IV antibiotic, vancomycin and zosyn wound care will need snu placement medication reviewed as above symptomatic treatment
[2018-12-20] MEDS: HumaLOG 300 UNITS/3 ML VIAL SC PRN (17:15)
[2018-12-20] MEDS: Insulin Glargine 10 UNITS in Pre-Filled Syringe 1 EACH SC SCH (20:41)
[2018-12-21] MEDS: Piperacillin/Tazobactam 4.5 GM in Sodium Chloride 0.9% 100 ML IVPB SCH ×3 (00:26→15:24)
[2018-12-21] MEDS: Vancomycin HCl 500 MG in Sodium Chloride 0.9% 100 ML IVPB SCH (02:26)
[2018-12-21] MEDS: glipiZIDE 10 MG TAB PO SCH ×2 (08:24→21:25)
[2018-12-21] MEDS: Saccharomyces boulardii 250 MG CAP PO SCH (08:24)
[2018-12-21] MEDS: Folic Acid 1 MG TAB PO SCH (08:24)
[2018-12-21] MEDS: Multivit, Therapeutic 1 TAB PO SCH (08:24)
[2018-12-21] MEDS: Potassium Chloride 20 MEQ TAB PO SCH (08:24)
[2018-12-21] MEDS: Enoxaparin Sodium 40 MG/0.4 ML SYRINGE SC SCH (08:24)
[2018-12-21] MEDS: Ferrous Sulfate 325 MG TAB PO SCH ×2 (08:24→17:55)
[2018-12-21] MEDS: Tamsulosin HCl 0.4 MG CAP PO SCH (08:24)
[2018-12-21] MEDS: Famotidine 20 MG TAB PO SCH ×2 (08:24→21:24)
[2018-12-21] MEDS: Atorvastatin Calcium 20 MG TAB PO SCH (08:24)
[2018-12-21] MEDS: Mirtazapine 15 MG TAB PO SCH (08:24)
--- NOTE | 2018-12-21 13:37 | PQF ---
DATE: 12-21-18 ATTN: DR. BRITTANY BENOIT Please exercise your independent, professional judgment in responding to the clarification form. Clinical indicators are provided on the bottom of this form for your review Please check appropriate box(s) to clarify if the following diagnosis has been ruled in or ruled out: SEPSIS [ XX ] Ruled in diagnosis [ ] Continue to treat [ XX ] Resolved [ ] Ruled out diagnosis [ ] Other diagnosis [ ] Unable to determine In addition, please specify: Present on Admission (POA): [ XX ] Yes [ ] No [ ] Unable to determine For continuity of documentation, please document condition throughout progress notes and discharge summary. Thank You. CLINICAL INDICATORS - SIGNS / SYMPTOMS / LABS: ER NOTE 12-11-18: POSSIBLE SEPSIS, FAMILY CONCERNED FOR BLOOD INFECTION ER DX 12-11-18: C DIFFICILE, GRADE IV DECUBITUS ULCER, HYPERGLYCEMIA, TYPE 2, MILD HYPONATREMIA H&P 12-11-18: POSSIBLE SEPSIS. THE PATIENT PRESENTED WITH SUSTAINED TACHYCARDIA, LEUKOCYTOSIS, ORIGINALLY THOUGHT THE FIRST SOURCE COULD BE THE DECUBITAL ULCERS. WE WILL NOT TREAT AGGRESSIVELY SINCE THE PATIENT HAS SEPSIS, IS AT RISK FOR HYPOTENSION. WBC: 12-10-18: 13.2 12-11-18: 16.2 RISK FACTORS: H&P 12-11-18: POSSIBLE SEPSIS. THE PATIENT PRESENTED WITH SUSTAINED TACHYCARDIA, LEUKOCYTOSIS, ORIGINALLY THOUGHT THE FIRST SOURCE COULD BE THE DECUBITAL ULCERS. WE WILL NOT TREAT AGGRESSIVELY SINCE THE PATIENT HAS SEPSIS, IS AT RISK FOR HYPOTENSION. TREATMENTS: H&P 12-11-18: PATIENT IS TO RECEIVE ANTIBIOTICS. IV HYDRATION WITH CAUTION GIVEN POSSIBLE UNDERLYING HEART DISEASE. MAR: 12-11-18: ZOSYN IV, VANCOMYCIN IV (This form is maintained as a part of the permanent medical record) 2014 [employer], [email or web address] All Rights Reserved GAIL [email or web address] Office: [phone] [facility]
--- NOTE | 2018-12-21 13:46 | PDOC.HOSPP ---
- Subjective Subjective: Seen and examined. Patient denies pain. No acute overnight events. Progressing on maximal medical therapy. Culture data reviewed with pseudomonas in urine. Patient afebrile normal WBC count. Will discontinue vancomycin. Continue with Zosyn while in acute care hospital. Patient's pseudomonas is sensitive to oral medications which may be effective on discharge. - Objective Vital Signs & Weight: Vital Signs (12 hours) Temp Pulse Resp BP Pulse Ox 12/21/18 07:45 97.7 F 90 20 152/77 H 98 Weight Admit Weight 173 lb 14.4 oz Weight 173 lb 14.4 oz I&O: 12/20/18 12/21/18 12/22/18 06:59 06:59 06:59 Intake Total 2200 1680 Output Total 2600 2450 Balance -400 -770 Result Diagrams: 12/19/18 12:46 12/19/18 12:46 Additional Labs: Accuchecks 12/21/18 12/21/18 12/20/18 11:38 04:23 19:46 POC Glucose 135 H 122 H 124 H 12/20/18 16:42 POC Glucose 151 H Hospitalist ROS - Review of Systems All other systems reviewed; all pertinent +/- noted in HPI/Subj - Medication Medications: Active Medications Generic Name Dose Route Start Last Admin Trade Name Freq PRN Reason Stop Dose Admin Acetaminophen 650 mg 12/11/18 00:30 12/16/18 21:05 Tylenol PO 650 mg Q4H PRN Administration Headache/Fever/Mild Pain (1-3) Atorvastatin Calcium 20 mg 12/11/18 09:00 12/21/18 08:24 Lipitor PO 20 mg DAILY EMERALD Administration Enoxaparin Sodium 40 mg 12/11/18 09:00 12/21/18 08:24 Lovenox SC 40 mg 0900 EMERALD Administration Famotidine 20 mg 12/12/18 21:00 12/21/18 08:24 Pepcid PO 20 mg BID EMERALD Administration Ferrous Sulfate 325 mg 12/12/18 17:00 12/21/18 08:24 Feosol PO 325 mg BID-WM EMERALD Administration Folic Acid 1 mg 12/13/18 09:00 12/21/18 08:24 Folvite PO 1 mg DAILY EMERALD Administration Glipizide 10 mg 12/11/18 09:00 12/21/18 08:24 Glucotrol PO 10 mg BID EMERALD Administration Piperacillin Sod/Tazobactam 100 mls @ 200 mls/hr 12/11/18 08:00 12/21/18 08: 23 Sod 4.5 gm/ Sodium Chloride IVPB 100 mls 0800,1600,2359 EMERALD Administration Insulin Glargine 10 units/ 0.1 mls @ 0 mls/hr 12/14/18 21:00 12/20/18 20:41 Miscellaneous Medication SC 0.1 mls HS EMERALD Administration Insulin Human Lispro 0 units 12/14/18 07:16 12/20/18 17:15 Humalog SC 3 unit .AGGRESSIVE SLIDING PRN Administration Aggressive Correctional Scale Mirtazapine 15 mg 12/13/18 09:00 12/21/18 08:24 Remeron PO 15 mg DAILY EEMRALD Administration Multivitamins 1 tab 12/13/18 09:00 12/21/18 08:24 Theragran PO 1 tab DAILY EMERALD Administration Potassium Chloride 40 meq 12/13/18 08:00 12/21/18 08:24 K-Dur PO 40 meq QAM-WM EMERALD Administration Saccharomyces Boulardii 250 mg 12/13/18 09:00 12/21/18 08:24 Florastor PO 250 mg DAILY EMERALD Administration Sodium Chloride 10 ml 12/11/18 09:00 12/21/18 08:25 Flush - Normal Saline IVF 10 ml Q12HR EMERALD Administration Sodium Chloride 10 ml 12/11/18 03:59 12/20/18 14:41 Flush - Normal Saline IVF 10 ml PRN PRN Administration Saline Flush Tamsulosin HCl 0.4 mg 12/11/18 09:00 12/21/18 08:24 Flomax PO 0.4 mg DAILY EMERALD Administration Tramadol HCl 50 mg 12/12/18 14:00 12/17/18 10:36 Ultram PO 50 mg Q6H PRN Administration Pain - Exam General Appearance: NAD, awake alert Eye: anicteric sclera ENT: normocephalic atraumatic, moist mucosa Neck: supple, no lymphadenopathy Heart: no murmur, no gallops, no rubs Respiratory: CTAB, no wheezes, no rales Gastrointestinal: soft, non-tender, no guarding, no rigidity Extremities: 1+ LE edema Skin: no lesions, no rashes Neurological: cranial nerve grossly intact, no focal deficits Musculoskeletal: generalized weakness, diffuse muscle atrophy Psychiatric: flat affect Hosp A/P (1) Decubitus ulcer, stage 4 with infection Code(s): L89.94 - PRESSURE ULCER OF UNSPECIFIED SITE, STAGE 4; L08.9 - LOCAL INFECTION OF THE SKIN AND SUBCUTANEOUS TISSUE, UNSP Status: Acute (2) Sacral decubitus ulcer, stage IV Code(s): L89.154 - PRESSURE ULCER OF SACRAL REGION, STAGE 4 Status: Acute (3) UTI (urinary tract infection) Status: Acute Qualifiers: Urinary tract infection type: catheter-associated UTI (4) DM II (diabetes mellitus, type II), controlled Code(s): E11.9 - TYPE 2 DIABETES MELLITUS WITHOUT COMPLICATIONS Status: Chronic (5) Severe muscle deconditioning Code(s): R29.898 - [facility] SYMPTOMS AND SIGNS INVOLVING THE MUSCULOSKELETAL SYSTEM Status: Chronic (6) Urinary retention Code(s): R33.9 - RETENTION OF URINE, UNSPECIFIED Status: Chronic (7) Sepsis Code(s): A41.9 - SEPSIS, UNSPECIFIED ORGANISM Status: Acute - Plan Plan: medical unit patient was pseudomonas in urine, wiley sensitive and is responding to Zosyn de-escalate ABX, stop vancomycin Afebrile, Normal WBC count patient has previous wound culture of the coccyx which demonstrated E. coli, proteusm and enterococcus all of these were sensitive to Zosyn as of 08/24 blood sugar control blood pressure control continue current plan of care wound care evaluation and treatment, recommendations appreciated PT/OT will need placement in half-way facility versus long-term care unit
[2018-12-21] MEDS: HumaLOG 300 UNITS/3 ML VIAL SC PRN (17:56)
[2018-12-21] MEDS: Insulin Glargine 10 UNITS in Pre-Filled Syringe 1 EACH SC SCH (21:25)
[2018-12-22] MEDS: Piperacillin/Tazobactam 4.5 GM in Sodium Chloride 0.9% 100 ML IVPB SCH ×2 (00:05→08:38)
[2018-12-22 08:35] VITALS: BP 133/54; TEMP 97.9
[2018-12-22] MEDS: Saccharomyces boulardii 250 MG CAP PO SCH (08:38)
[2018-12-22] MEDS: Tamsulosin HCl 0.4 MG CAP PO SCH (08:38)
[2018-12-22] MEDS: Potassium Chloride 20 MEQ TAB PO SCH (08:38)
[2018-12-22] MEDS: Enoxaparin Sodium 40 MG/0.4 ML SYRINGE SC SCH (08:38)
[2018-12-22] MEDS: Multivit, Therapeutic 1 TAB PO SCH (08:39)
[2018-12-22] MEDS: Mirtazapine 15 MG TAB PO SCH (08:39)
[2018-12-22] MEDS: Ferrous Sulfate 325 MG TAB PO SCH (08:39)
[2018-12-22] MEDS: Atorvastatin Calcium 20 MG TAB PO SCH (08:39)
[2018-12-22] MEDS: Folic Acid 1 MG TAB PO SCH (08:39)
[2018-12-22] MEDS: Famotidine 20 MG TAB PO SCH (08:39)
[2018-12-22] MEDS: glipiZIDE 10 MG TAB PO SCH (09:18)
--- NOTE | 2018-12-22 11:06 | PDOC.GSPN ---
Surgery Progress Note: Subj - Subjective Narrative: VAC change with wound care team today. The wound looks much better. No further debridement was necessary. He does still have some exposed bone in the base of the wound but this is not protruding and should cover with granulation tissue with VAC dressing changes. Type and duration of antibiotic therapy will be deferred to infectious disease specialist. He can follow up in the wound care clinic or in my clinic after discharge. Continue VAC dressing changes are recommended, with meticulous offloading. The full-thickness eschar on his left buttock is starting to separate around the edges but is not yet ready to debride. No evidence of infection of this wound. Surgery Progress Note: Obj - Vital signs Vital signs: Vital Signs - Most Recent Temp Pulse Resp BP Pulse Ox 97.9 F 93 20 133/54 L 100 12/22/18 08:00 12/22/18 08:00 12/22/18 08:00 12/22/18 08:00 12/22/18 08:00 Surgery Progress Note: Results - Labs Result Diagrams: 12/19/18 12:46 12/19/18 12:46 Lab results: Laboratory Results - last 24 hr 12/22/18 12/22/18 12/22/18 00:13 04:33 08:36 POC Glucose 138 H 77 70 12/22/18 09:21 POC Glucose 94
[2018-12-22] MEDS: HumaLOG 300 UNITS/3 ML VIAL SC PRN (12:40)
--- NOTE | 2018-12-23 05:27 | DIS ---
DATE OF ADMISSION: 12/11/2018 DATE OF DISCHARGE: 12/22/2018 FINAL DIAGNOSES: 1. Decubitus ulcer, stage IV with infection. 2. Sacral decubitus ulcer, stage IV. 3. Urinary tract infection. 4. Diabetes mellitus. 5. Severe deconditioning and muscle deconditioning. HOSPITAL COURSE: The patient was hospitalized. Decubitus ulcer was managed by General Surgery as well as Medical Team. IV antibiotics were continued. Diabetes has been managed. As patient's condition improving, to be transferred to outpatient care. As per the recommendations of General Surgery, it has been concluded to transfer the patient to outpatient care. DISCHARGE INSTRUCTIONS: Discharge patient to outpatient care, to follow up with General Surgery. Home health to follow and correction facility as needed. DISCHARGE MEDICATIONS: As per reconciliation sheet. DIET: ADA, 1800 calories. ACTIVITY: As per Physical Therapy. FOLLOWUP CARE: Follow up with General Surgery as scheduled. Follow up with PCP as scheduled in the correction facility. Job ID: [id number]
== END 2018-12-22 14:23 | DRG 853 ==
LOC: ERS 21:39 → T4-A 12-11 01:00
PROVIDERS: ADMIT Hospitalist; ATTEND Hospitalist
PROC: 0T9B70Z Drainage of Bladder with Drainage Device, Via Natural or Artificial Opening (ICD-10-PCS; 2018-12-14)
PROC: 0KBP0ZZ Excision of Left Hip Muscle, Open Approach (ICD-10-PCS; principal; 2018-12-15)
PROC: 0KBN0ZZ Excision of Right Hip Muscle, Open Approach (ICD-10-PCS; 2018-12-15)
PROC: 0JB70ZZ Excision of Back Subcutaneous Tissue and Fascia, Open Approach (ICD-10-PCS; 2018-12-16)
PROC: 3E02340 Introduction of Influenza Vaccine into Muscle, Percutaneous Approach (ICD-10-PCS; 2018-12-21)
DX: A41.9 Sepsis, unspecified organism (principal); L89.154 Pressure ulcer of sacral region, stage 4; Z23 Encounter for immunization; L89.513 Pressure ulcer of right ankle, stage 3; E87.1 Hypo-osmolality and hyponatremia; N39.0 Urinary tract infection, site not specified; I10 Essential (primary) hypertension; E78.5 Hyperlipidemia, unspecified; E11.65 Type 2 diabetes mellitus with hyperglycemia; D47.3 Essential (hemorrhagic) thrombocythemia; L89.892 Pressure ulcer of other site, stage 2; R29.898 Other symptoms and signs involving the musculoskeletal system; B96.5 Pseudomonas (aeruginosa) (mallei) (pseudomallei) as the cause of diseases classified elsewhere; F03.90 Unspecified dementia, unspecified severity, without behavioral disturbance, psychotic disturbance, mood disturbance, and anxiety; D50.9 Iron deficiency anemia, unspecified; B96.4 Proteus (mirabilis) (morganii) as the cause of diseases classified elsewhere; B96.20 Unspecified Escherichia coli [E. coli] as the cause of diseases classified elsewhere; B95.2 Enterococcus as the cause of diseases classified elsewhere; Z86.73 Personal history of transient ischemic attack (TIA), and cerebral infarction without residual deficits; Z79.84 Long term (current) use of oral hypoglycemic drugs; Z79.899 Other long term (current) drug therapy; Z74.01 Bed confinement status
CPT/HCPCS: 36415; 36416; 71045; 80048; 80053; 80202; 81003; 81015; 82010; 82330; 82435; 82803; 83605; 84132; 84295; 85014; 85025; 87040; 87077; 87086; 87186; 90471; 90662; 96361; 96365; 96366; 96367; 96375; G0008; J1650; J1815; J2543; J3370; J3411; J3490; J7042; J7050